=== PATIENT | male | born 1980 | race Caucasian/White ===

== ENCOUNTER → 2017-03-13 | Outpatient (RCR) | payer MEDICAID, SELFPAY | LOC: PT 10-04 13:38 | PROVIDERS: Visit Provider Orthopaedic Surgery | DX: S91.002D Unspecified open wound, left ankle, subsequent encounter (principal) | CPT/HCPCS: 97035; 97597; 97602; 97760 ==

== ENCOUNTER → 2017-07-08 14:02 | Outpatient (POV) | payer MEDICARE, SELFPAY | DX: Z00.00 Encounter for general adult medical examination without abnormal findings (principal) ==

== ENCOUNTER → 2018-10-27 12:48 | Outpatient (POV) | payer MEDICARE, SELFPAY | DX: Z00.00 Encounter for general adult medical examination without abnormal findings (principal) ==

== ENCOUNTER → 2020-11-16 10:20 | Outpatient (CLI) | payer MEDICARE, MEDICAID, SELFPAY ==
--- NOTE | 2020-11-16 10:42 | US_ITS ---
APPROVED REPORT Exam Type: Ankle to Brachial Index [employer]: RT Clint(R) Indications Claudication: Bilaterally Non-healing Ulcer: Rest Pain: Bilaterally Ulcer on left lateral mid calf with bandaging present. Risk Factors Hypertension Obesity History of Smoking Patient was 481 lbs. Pressures/Indices Right Indices Left Indices Brachial 171.00 mmHg Brachial 168.00 mmHg Calf 196.00 mmHg 1.15 Calf 215.00 mmHg 1.26 Ankle(PT) 210.00 mmHg 1.23 Ankle(PT) 212.00 mmHg 1.24 Ankle(DP) 204.00 mmHg 1.19 Ankle(DP) 188.00 mmHg 1.10 Digit 128.00 mmHg 0.75 Digit 158.00 mmHg 0.92 Conclusion RT GUILLE=1.23 LT GUILLE=1.24 RT TBI=0.75 LT TBI=0.92 Normal waveforms Normal pulses Normal ABIs Non compressible vessels seen at the left and right PT thigh levels. Electronically signed by : Minesh Chun MD 11/20/2020 16:23:52
== END ==
PROVIDERS: PCP Nurse Practitioner Family; Visit Provider Nurse Practitioner Family
DX: L97.221 Non-pressure chronic ulcer of left calf limited to breakdown of skin (principal)
CPT/HCPCS: 93923

== ENCOUNTER → 2021-01-30 10:52 | Outpatient (CLI) | payer MEDICARE, MEDICAID, SELFPAY ==
[2021-01-30 10:55] LABS: Microscopic, Urine URINE MICROSCOPIC (MICROSCOPIC)
[2021-01-30 14:57] LABS: Appearance,Urine CLEAR (Clear); Bilirubin,Urine Negative (Negative); Blood, Urine Negative (Negative); Color,Urine YELLOW (Yellow); Glucose,Urine (UA) Negative (Negative); Ketones,Urine Negative (Negative); Leukocyte Esterase,Urine Negative (Negative); Nitrate,Urine Negative (Negative); Protein,Urine Negative (Negative); Specific Gravity, Urine >= 1.030 (1.005-1.030); Urobilinogen,Urine 0.2 EU/dl (0.2)
[2021-01-30 15:43] LABS: Albumin Level 3.8 g/dl (3.5-5.0); Anion Gap 11.9 mEq/L (5-15); Blood Urea Nitrogen 10 mg/dl (9-20); Calcium 8.6 mg/dl (8.4-10.2); Carbon Dioxide 27 mmol/L (22.0-30.0); Chloride 103 mmol/L (98-107); Estimated Glomerular Filt Rate 107 ml/min (>60); GFR (African American) 129 ML/MIN (>60); Glucose 112 mg/dl (74-100); Phosphorous 3.4 mg/dl (2.5-4.5); Potassium 3.9 mmoL/L (3.5-5.1); Sodium 138 mmol/L (136-145)
[2021-01-30 15:46] LABS: Creatinine,Urine Random 117 mg/dL (Not Estab.)
[2021-01-30 18:01] LABS: Squamous Epithelial Cell,Urine Occasional #/hpf (0-5)
== END ==
PROVIDERS: Visit Provider Internal Medicine Nephrology
DX: N18.1 Chronic kidney disease, stage 1 (principal); M10.9 Gout, unspecified
CPT/HCPCS: 36415; 80069; 81001; 82570; 84155; 84550

== ENCOUNTER 2023-07-02 15:00 | Outpatient (RCR) | payer MEDICARE, MEDICAID, SELFPAY | END 2023-08-04 17:55 | disposition home or self-care (01) | LOC: PT 15:00 | PROVIDERS: Visit Provider Orthopaedic Surgery Adult Reconstructive Orthopaedic Surgery | DX: M25.512 Pain in left shoulder (principal) | CPT/HCPCS: 97110; 97163 ==

== ENCOUNTER 2024-03-03 11:00 | Outpatient (RCR) | payer MEDICARE, MEDICAID, SELFPAY | END 2024-03-03 23:59 | disposition home or self-care (01) | LOC: PT 11:00 | PROVIDERS: PCP Nurse Practitioner Family; Visit Provider Orthopaedic Surgery Sports Medicine | DX: M75.122 Complete rotator cuff tear or rupture of left shoulder, not specified as traumatic (principal) | CPT/HCPCS: 97014; 97110; 97140; 97163; 97530; G0283 ==

== ENCOUNTER 2024-04-11 07:42 | Outpatient (CLI) | payer MEDICARE, MEDICAID, SELFPAY ==
--- NOTE | 2024-04-11 07:51 | XR_ITS ---
FINAL REPORT CLINICAL HISTORY: Foot pain COMPARISON: None FINDINGS: RIGHT FOOT Three views demonstrate no acute fracture or dislocation. There are moderate hypertrophic changes over the dorsal aspect of the talonavicular joint. There is a 13 mm os trigonum. A small plantar spur is noted. No acute soft tissue abnormality is seen. IMPRESSION: Degenerative changes without acute bony abnormality. Reviewed, Interpreted and Dictated by Ralf Staples MD Transcribed by China Nolan Authenticated and [facility]
--- NOTE | 2024-04-11 07:51 | XR_ITS ---
FINAL REPORT CLINICAL HISTORY: Foot pain COMPARISON: None FINDINGS: LEFT FOOT Three views demonstrate no acute fracture or dislocation. There is a sideplate and screws securing the distal fibula. The mortise appears intact. There are hypertrophic changes at the talonavicular joint. There are some small well-corticated ossific densities inferior to the medial malleolus. No acute soft tissue abnormality is seen. IMPRESSION: Degenerative and postoperative changes without acute bony abnormality. Reviewed, Interpreted and Dictated by Ralf Staples MD Transcribed by China Nolan Authenticated and [facility]
== END 2024-04-11 23:59 | disposition home or self-care (01) ==
LOC: RAD 07:44
PROVIDERS: PCP Nurse Practitioner Family; Visit Provider Nurse Practitioner
DX: M79.671 Pain in right foot (principal); M79.672 Pain in left foot
CPT/HCPCS: 73630

== ENCOUNTER 2024-04-12 13:00 | Outpatient (RCR) | payer MEDICARE, MEDICAID, SELFPAY | END 2024-04-12 23:59 | disposition home or self-care (01) | LOC: PT 13:00 | PROVIDERS: PCP Nurse Practitioner Family; Visit Provider Orthopaedic Surgery Sports Medicine | DX: M75.122 Complete rotator cuff tear or rupture of left shoulder, not specified as traumatic (principal) | CPT/HCPCS: 97014; 97110; 97530; G0283 ==

== ENCOUNTER 2024-04-19 12:40 | Outpatient (RCR) | payer MEDICARE, MEDICAID, SELFPAY | END 2024-04-26 11:43 | disposition home or self-care (01) | LOC: PT 12:40 | PROVIDERS: PCP Nurse Practitioner Family; Visit Provider Orthopaedic Surgery Sports Medicine | DX: M75.122 Complete rotator cuff tear or rupture of left shoulder, not specified as traumatic (principal) | CPT/HCPCS: 97110; 97530 ==

== ENCOUNTER 2024-08-09 15:00 | Outpatient (RCR) | payer MEDICARE, MEDICAID, SELFPAY | END 2024-08-09 23:59 | disposition home or self-care (01) | LOC: PT 15:00 | PROVIDERS: PCP Nurse Practitioner Family; Visit Provider Orthopaedic Surgery Adult Reconstructive Orthopaedic Surgery | DX: M54.50 Low back pain, unspecified (principal); M25.552 Pain in left hip; M25.551 Pain in right hip; M25.562 Pain in left knee; M25.561 Pain in right knee | CPT/HCPCS: 20560; 97110; 97163; 97530 ==

== ENCOUNTER 2024-08-30 14:00 | Outpatient (RCR) | payer MEDICARE, MEDICAID, SELFPAY | END 2024-09-06 08:51 | disposition home or self-care (01) | LOC: PT.CARL 14:00 | PROVIDERS: PCP Nurse Practitioner Family; Visit Provider Orthopaedic Surgery Adult Reconstructive Orthopaedic Surgery | DX: M17.0 Bilateral primary osteoarthritis of knee (principal); M54.59 Other low back pain; M25.551 Pain in right hip; M25.552 Pain in left hip | CPT/HCPCS: 97110 ==

== ENCOUNTER 2025-02-06 15:50 | Outpatient (CLI) | payer MEDICARE, MEDICAID, SELFPAY ==
--- OUTSIDE RECORDS SUMMARY | 2025-02-07 08:28 | XMS_ITS | Continuity of Care Document ---
Author Organization [facility] Edictive [facility] Address [address] [place] [address] Care Team Providers Care Vibration Analyst Name Role Phone ALVERTO JONES Primary Care Provider JAGRUTI Contreras [place] JAGRUTI SPRINGER Community Health Worker [phone] Assessment Encounter Date Assessment Date Assessment LastModified by Organization Details LastModified Time 12/19/2024 12/19/2024 George Leon, a patient with peripheral vascular disease and arthritis, presented with a left 2nd toe wound from dog trauma one week ago and intermittent left-sided abdominal pain. The toe wound required daily cleaning with Hibiclens and gauze dressing. His abdominal pain was likely related to indigestion and he was cautioned to only use Celebrex rarely. He was started on Prilosec for 30 days and advised to take Celebrex with food only when truly needed rather than daily. [email or web address] Not available 12/19/2024 16:33:06 Plan of Treatment Reminders Order Date Submit Date Provider Last Modified By Organization Details Last Modified Time Details Appointments FOLLOW UP 30 2024 01:30P M Gege Jones APRN Not available Not available Not available Lab None recorded. Referral None recorded. Procedures None recorded. Surgeries None recorded. Imaging None recorded. Medication Orders omeprazol e 20 mg capsule,d elayed release 2024 025 [facility], [address] [place] [address], [id number], 12/19/2024 16:00:00 Patient TargetsNo targets recorded. Patient InstructionsNo instructions recorded. Reason for Referral None Reported. Problems Name Problem SNOMED Code Status Onset Date Resolution Date Notes Provider Name and Address Organization Details Recorded Time Peripher al vascular disease 282148078 Active 2020 Not Available [facility] 22:21:15 Hyperten sive disorder 29483443 Active 2021 Problem Code: I10; Problem Code Type: ICD-10; Not Available [facility] 2 22:21:15 Moderate recurren t major depressi on 46947419 Active 2021 Problem Code: F33.1; Problem Code Type: ICD-10; Not Available [facility] 22:21:15 Body mass index 40+ - severely obese 040778633 Active 2021 Not Available [facility] 22:21:16 Mixed hyperlip idemia 676979815 Active 2021 Problem Code: E78.2; Problem Code Type: ICD-10; Not Available [facility] 22:21:15 Gout 51231114 Completed 202209/24/2023 Removal Reason: duplicat e Taylor James NP [address] [place] [address], [phone] , [employer] 4 14:35:31 Generali zed osteoart hritis 036378489 Active 2022 Taylor James NP [address] [place] [address], [phone] , [employer] 4 14:35:22 Chronic gouty arthriti s 01918017 Active 2023 Taylor James NP [address] [place] [address], [phone] , [employer] 4 14:35:20 Vitamin D deficien 30446775 Active 2023 Alverto Jones APRN [address] [place] [address], [phone] , [employer] 4 13:15:26 Deep venous thrombos is of lower extremit y 814006869 Active 2024 Alverto Jones APRN [address] [place] [address], [phone] , [employer] 5 14:21:37 Osteoart hritis of left knee joint 48314526738 9109 Active 2024 Alverto Jones APRN [address] [place] [address], [address] [place] [address] , [employer] 5 09:21:02 Indigest ion 148443863 Active 2024 Alverto Jones APRN [address] [place] [address], [address] [place] [address] , [employer] 5 15:45:31 Open wound of lesser toe of left foot 21794748932 251375 Active 2024 Alverto Jones APRN [address] [place] [address], [address] [place] [address] , [employer] 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 Procedures Surgical History Date Name Laterality Status Provider Name and Address Organization Details Recorded Time 12/14/19 24 complete repair of rotator cuff completed Alverto Jones APRN [address] [place] [address], [phone], [employer] 01/13/2024 15:42:32 10/25/19 21 repair of ankle completed Not Available [facility] 08/2021 22:56:18 10/25/19 21 tonsillectomy and adenoidectomy completed Not Available [facility] 11/19/2021 22:56:19 Imaging Results None recorded. Procedure Notes None recorded. Medical Equipment None Reported. Allergies Allergen ID Allergen Name Allergen Category Reaction Reaction Severity Criticality Documentation Date Start Date Code Code System Note Provider Name and Address Organization Details Recorded Time 67669 Bactrim medicatio n Not available Not available Not available 11/19/2021 50426 9 RxNorm Not Available [facility] 22:56:32 16387 sulfameth oxazole / trimethop rim medicatio n Not available Not available [facility] 02/06/20252022 95242 RxNorm unrec ogniz ed react ion (text : GI Intol eranc e, code: 85727 4005) (from exter nal sourc e) unrec ogniz ed react ion (text : Irrit abili ty, code: 90856 6000) (from exter nal sourc e) Not Available [employer] - External Data Service - prod 16:31:44 Medications Name Sig Start Date Stop Date Status Note LastModified by Organization Details LastModified Time losartan 50 mg tablet TAKE ONE TABLET BY MOUTH EVERY DAY active Not Available Not Available No t Available celecoxib 200 mg capsule TAKE ONE CAPSULE BY MOUTH EVERY DAY NEEDED FOR ARTHRITIS 2024 active Not Available Not Available Not Avai lable furosemide 40 mg tablet TAKE ONE TABLET BY MOUTH EVERY MORNING active Not Available Not Available No t Available carvedilol 25 mg tablet TAKE ONE TABLET BY MOUTH TWICE DAILY WITH FOOD active Not Available Not Available No t Available ketoconazol e 2 % shampoo Massage into scalp and carrillo 2-3 times a week. Let sit a few minutes before rinsing. Follow with regular shampoo. active Not Available Not Available No t Available ammonium lactate 12 % lotion 08/13 completed Not Available Not Available Not Available azithromyci n 250 mg tablet TAKE 2 TABLETS BY MOUTH ON DAY 1, THEN TAKE 1 TABLET DAILY ON DAYS 2-5 10/25 completed Not Available Not Available Not Available tizanidine 4 mg tablet TAKE 1 TABLET EVERY 6 HOURS NEEDED. DO NOT TAKE MORE THAN 3 TABLETS IN 24 HOURS. 02/11 completed Not Available Not Available Not Available cephalexin 250 mg capsule take 1 capsule (250 mg) by oral route every 6 hours for 7 days 12/12 completed Not Available Not Available Not Available fluticasone propionate 0.05 % topical cream Apply to affected areas on face twice daily for up to 2 weeks. Stop for 1 week. Repeat as needed. active Not Available Not Available No t Available sertraline 100 mg tablet TAKE 1 TABLET BY MOUTH EVERY DAY active Not Available Not Available No t Available allopurinol 100 mg tablet TAKE TWO TABLETS BY MOUTH TWICE DAILY EVERY DAY active Not Available Not Available No t Available aspirin 81 mg tablet,ada yed release take 1 tablet (81 mg) by oral route once daily 05/25 completed Not Available Not Available Not Available doxycycline monohydrate 100 mg capsule TAKE ONE CAPSULE BY MOUTH TWICE DAILY with a MEAL FOR SEVEN DAYS, FOR ear infection 08/23 completed Not Available Not Available Not Available ropinirole 2 mg tablet TAKE ONE TABLET BY MOUTH TWICE DAILY 2024 active Not Available Not Available Not Avai lable omeprazole 20 mg capsule,del ayed release TAKE 1 CAPSULE BY MOUTH EVERY DAY FOR 30 DAYS FOR stomach 2024 active Not Available Not Available Not Avai lable diclofenac sodium 75 mg tablet,ada yed release TAKE ONE TABLET BY MOUTH TWICE DAILY 05/25 completed Not Available Not Available Not Available montelukast 10 mg tablet TAKE ONE TABLET BY MOUTH EVERY EVENING 02/16 completed Not Available Not Available Not Available mupirocin 2 % topical ointment APPLY TO SURGICAL SITE 3 TIMES EACH DAY. KEEP COVERED WITH BANDAGE. 02/11 completed Not Available Not Available Not Available levofloxaci n 750 mg tablet TAKE 1 TABLET 1 TIME EACH DAY 02/11 completed Not Available Not Available Not Available albuterol sulfate HFA 90 mcg/actuati on aerosol inhaler Inhale 2 puffs every 4 hours by inhalatio n route. active Not Available Not Available No t Available Vitamin D2 1,250 mcg (50,000 unit) capsule TAKE ONE CAPSULE BY MOUTH EVERY WEEK FOR VITAMIN D active Not Available Not Available No t Available ketoconazol e 2 % topical cream Apply a thin layer to the affected area twice a day as needed. active Not Available Not Available No t Available fluticasone propionate 50 mcg/actuati on nasal spray,suspe nsion Administe r 1 spray into each nostril in the morning and 1 spray before bedtime. active Not Available Not Available No t Available sertraline 50 mg tablet take 1 tablet (50 mg) by oral route once daily 02/11 completed Not Available Not Available Not Available chlorhexidi ne gluconate 4 % topical liquid Apply 1 applicati on twice a week by topical route. 08/13 completed Not Available Not Available Not Available amoxicillin 875 mg-potassiu m clavulanate 125 mg tablet 08/17 completed Not Available Not Available Not Available oxycodone 5 mg tablet TAKE ONE TABLET BY MOUTH EVERY 6 HOURS NEEDED FOR PAIN 01/12 completed Not Available Not Available Not Available rosuvastati n 20 mg tablet TAKE ONE TABLET BY MOUTH EVERY DAY FOR CHOLESTER OL 2024 active Not Available Not Available Not Avai lable duloxetine 30 mg capsule,del ayed release TAKE ONE CAPSULE BY MOUTH EVERY DAY for chronic pain 06/27 completed Not Available Not Available Not Available duloxetine 60 mg capsule,del ayed release TAKE ONE CAPSULE BY MOUTH EVERY DAY FOR PAIN active Not Available Not Available No t Available diclofenac 1 % topical gel APPLY 4 GRAMS TO THE SKIN OVER THE PAINFUL AREA UP TO 4 TIMES EACH DAY. 2024 active Not Available Not Available Not Avai lable Eliquis 5 mg tablet TAKE ONE TABLET BY MOUTH TWICE DAILY for blood clot active Not Available Not Available No t Available Robitussin Cough-Chest Congestion DM 5 mg-100 mg/5 mL oral liquid Take 5 mL every 4-6 hours by oral route as needed, for cough. 08/23 completed Not Available Not Available Not Available Marla-Tussin DM 10 mg-100 mg/5 mL oral liquid Take 5 mL by mouth every 4-6 hours as needed, for cough. 08/23 completed Not Available Not Available Not Available Vitals Date Recorded Body height Body mass index (BMI) Body weight Body temperature Heart rate Oxygen saturation Systolic And Diastolic Provider Name and Address Organization Details Last Updated DateTime 180.34 cm 64.5 kg/m2 973941. 11 g 98.1 [degF] 82 /min 96 % 126/80 mm[Hg] MICHAEL GUAJARDO [employer] 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 02/11/2022 11:56:43 Do You Have An Advance Directive? No Information n ot available 02/11/2022 Is Your Home Air Conditioned? Yes Information not available 02/11/2022 Are You Blind Or Do You Have Difficulty Seeing? No Information n ot available 10/10/2022 In The 14 Days Before Symptom Onset, Have You Had Close Contact With A Laboratory-confirm ed COVID-19 While That Case Was Ill? No Information n ot available 02/11/2022 In The 14 Days Before Symptom Onset, Have You Had Close Contact With A Person Who Is Under Investigation For COVID-19 While That Person Was Ill? No Information not available 09/24/2023 Have You Been To An Area Known To Be High Risk For COVID-19? No Information not available 02/11/2022 Are You Deaf Or Do You Have Serious Difficulty Hearing? No Information not available 10/10/2022 What Type Of Diet Are You Following? REGULAR Information n ot available 02/11/2022 Have There Been Any Changes To Your Family Or Social Situation? No Information no t available 02/11/2022 Are There Any Guns Present In Your Home? No Information not available 02/11/2022 Do You Have A Medical Power Of Pitting Machine Operator? No Information not available 02/11/2022 What Was The Date Of Your Most Recent Tobacco Screening? 12/19/2024 Information not available 12/19/2024 What Is Your Relationship Status? Single Information not available 02/11/2022 Do You Use Your Seat Belt Or Car Seat Routinely? Yes Information not available 02/11/2022 Do You Have Smoke And Carbon Monoxide Detectors In Your Home? Yes Information not available 02/11/2022 Are You Passively Exposed To Smoke? No Information no t available 02/11/2022 Are There Any Smokers In Your House? No Information not available 02/11/2022 Do You Use Sunscreen Routinely? No Information not available 02/11/2022 Has Tobacco Cessation Counseling Been Provided? No Information not available 02/11/2022 Have You Recently Traveled Abroad? No Information not available 02/11/2022 Do You Have Difficulty Walking Or Climbing Stairs? No Information not available 10/10/2022 Are You Currently In School? No Information not available 02/11/2022 Do You Have Any Dietary Restrictions? No Information not available 02/11/2022 Sex: Male Functional Status Question Answer Note LastModified by Organizat ion Details LastModified Time Do you use any illicit or recreational drugs? No Information not available 02/11/2022 Do you or have you ever used any other forms of tobacco or nicotine? Yes Information not available 08/18/2023 What is your level of alcohol consumption? None Information not available 02/11/2022 Do you or have you ever used smokeless tobacco? Current snuff user Information not available 10/10/2022 Are you currently employed? Yes Information not available 02/11/2022 Do you have transportation difficulties? Yes Information not available 02/11/2022 Are you able to walk independently without assistance or assistive devices? YESASSIST Information not available 10/10/2022 Do you have difficulty doing errands alone? No Information not available 10/10/2022 Are you able to care for yourself independently? Yes Information not available 02/11/2022 Do you have difficulty dressing, bathing, grooming, or toileting? No Information not available 10/10/2022 Do you or have you ever used e-cigarettes or vape? Never used electronic cigarettes Information not available 08/18/2023 Mental Status Question Answer Note LastModified by Organization D etails LastModified Time Do you have difficulty concentrating, remembering or making decisions? No Information no t available 10/10/2022 Family History Relationship Description Onset Age of this Age Resolved Age Notes LastModified by Organization Details LastModified Time Unspecified Relation Family history of Hypertension Relati ve: ''; [email or web address] Not available 11/19/2021 23:02:02 Unspecified Relation Family history of Cardiovascul ar disease Relati ve: ''; [email or web address] Not available 11/19/2021 23:02:03 Unspecified Relation Family history of Hypothyroidi sm Relati ve: ''; [email or web address] Not available 11/19/2021 23:02:04 Unspecified Relation Family history of Depression Relati ve: ''; [email or web address] Not available 11/19/2021 23:02:04 Unspecified Relation Family history of drug abuse Relati ve: ''; [email or web address] Not available 11/19/2021 23:02:04 Notes:*Procedure Description : Documented family medical history in mother*Relative: Mother *Procedure Description: Documented family medical history in father*Relative: Father *Procedure Description: Documented family medical history in sister*Relative: Sister *Procedure Description: Family history of bipolar disorder*Relative: Unspecified Relation *Problem: Relative: ''; Medical History Condition Response Allergies (Food, seasonal, environmental ) Y Coronary Artery Disease N Other N Gout N Kidney Stones N Blood Diseases N Hyperthyroidism N Breast Cancer N Blood Transfusion N Emergency room visit since last appointm ent. N Hypothyroidism N Lung Disease N COPD N Dermatologic Disorders N Depression N Defects or Inherited Disease N Developmental or Behavioral Disorders N Breast Problem N Difficulty Swallowing N Anesthesia Complications N History of STI N Meniere's disease N Anxiety Disorder N Muscle, Joint, or Bone Problems N Autoimmune disease N Obesity Y Vision or Eye Problems N Arthritis N Polyps N Infertility N Mental Disorder N Congenital Anomalies N Acid Reflux (GERD) N Cancer N Stroke N Neurologic/Epilepsy N Endometriosis N Bladder or Kidney Problems N High Cholesterol N Liver Disease N Psychiatric/Mental Health Condition N Organ Transplant N Headaches N Schizophrenia N Fibromyalgia N Dialysis N Kidney Disease N Allergies/Hayfever N Heart Problems N Ear or Hearing Problems N Hospitalizations N Learning Disorder N Artificial Joints N Thyroid Problems N GI Problems N Acne N ADD/ADHD N Eating Disorder N Anemia N Constipation N Mental Illness N Ovarian Cancer N Diabetes N Bedwetting N Hepatitis/Liver Disease N Tuberculosis N Eczema N Diverticulitis N Abuse/Domestic Violence N Asthma N Trauma/Violence N Substance Abuse N Reflux/GERD N Depression/ depression N Hepatitis N Heart Disease N Pulmonary Embolism N Tourette Syndrome N Pre-Eclampsia N Hypertension N Chronic Ear Infections N Osteoporosis N Chicken Pox N Autism Spectrum Disorder (ASD) N Thrombophilias N Immunizations Vaccine Type Date Status Note Provider Nam e and Address Organization Details Recorded Time Influenza, split virus, quadrivalent, PF 3 completed Alverto Jones, FLOOR ASSOCIATE [address] [place], [address], [employer] 02/16/2023 13:00:52 COVID-19 vaccine, vector-nr, rS-Ad26, PF, 0.5 mL 1 completed MICHAEL MYNEAR null, [employer] 02/11/2022 11:54:50 Influenza, split virus, quadrivalent, PF 1 completed MICHAEL MYNEAR null, [employer] 02/11/2022 11:54:50 COVID-19, mRNA, LNP-S, PF, silver-sucrose, 30 mcg/0.3 mL 4 completed Alverto Jones, FLOOR ASSOCIATE [address] [place], [address], [employer] 02/24/2024 12:08:41 Influenza, MDCK, quadrivalent, PF 0 completed MICHAEL MYNEAR null, [employer] 02/11/2022 11:54:50 Influenza, MDCK, quadrivalent, PF 8 completed MICHAEL MYNEAR null, [employer] 02/11/2022 11:54:50 Td (adult), 2 Lf tetanus toxoid, preservative free, adsorbed 6 completed MICHAEL MYNEAR null, [employer] 02/11/2022 11:54:50 COVID-19 vaccine, vector-nr, rS-Ad26, PF, 0.5 mL 1 completed MICHAEL MYNEAR null, [employer] 02/11/2022 11:54:50 Tdap 3 completed MICHAELNAIF GUAAJRDO null, [place] [employer] 02/11/2022 11:54:50 Influenza, MDCK, quadrivalent, PF 8 completed Pati Horowitz null, [employer] 10/10/2022 17:07:18 Influenza, split virus, trivalent, PF 5 completed MICHAEL MACARENANEAR null, [employer] 12/19/2024 15:25:02 Past Encounters Encounter ID Performer Location Encounter Start Date Encounter Closed Date Diagnosis/Indication Diagnosis SNOMED-CT Code Diagnosis ICD10 Code Diagnosis IMO Codes Diagnosis Note [id number] Alverto Jones FLOOR ASSOCIATE [address] [address] 12/19/2024 14:58:24 12/19/2024 16:48:43 Influenza vaccination given 7710158603 9109 Z23 24307155 Indigestion 363723407 K3 0 96931 Open wound of lesser toe of left foot 4225620973 3197937 S91.105A [id number] Goals Section Goal Description Progress Status Start Date LastModified by Organization Details LastModified Time Housing [facility] will assist patient with finding handicapped housing within [place] or [place] within in the next 6 months so patient can move out of parents house. [facility] will obtain applications for apartments and forward to patient via emila per patient request, since patient does not have tranportation. patient would also like assistance with the actual move, if [facility] is able to find that assistance. Pt is not at risk for losing housing and therefore patient reports this is not an urgent need. sustaining active 2024 Jagruti Springer Information not available 09/08/2024 19:02:48 Health Concerns Section Related Observation LastModified by Organization Detai ls LastModified Time Disability Not Available Not Available Not Available Concern Status LastModified by Organization Details LastModified Time Encounter for screening involving social determinants of health (SDoH) Active Jagruti Springer Not Available 09/08/2024 19:0 6:31 Encounter for education Active Jagruti Springer Not Available 09/08/2024 19:02 :48 Payers Encounter Date Sequence Insurance Name Policy Number Policy Longo Covered Member ID Longo Member ID Guarantor Name 12/19/2024 2 MEDICAID-[facility] CHOICES - FFS/TRADITIO NAL George Leon [id number] George Leon 12/19/2024 1 [employer] (MEDICARE REPLACEMENT/ ADVANTAGE - PPO) [id number] George Leon [id number] George Leon Notes Date Note Type Note Provider Name and Address Organization Details Recorded Time 12/19/2024 text/html ROS as noted in the HPI Chief ComplaintLeft 2nd toe injury and wound from dog jumping on it 1 week ago, intermittent left-sided stomach pain for a few daysHistory of Present IllnessJosejhony Leon, a patient with a history of peripheral vascular disease and arthritis, presents with two main concerns: a wound on his left 2nd toe and intermittent left-sided abdominal pain.Mr. Leon reports that about a week ago, his dog jumped on his left 2nd toe, causing pain. He initially tried to manage it himself but was unable to properly care for it due to difficulty reaching his feet. The patient only discovered a wound on the toe today when removing his sock. He has not been dressing or cleaning the wound, as he relies on his sister's weekly visits for foot care.Regarding the abdominal pain, Mr. Leon describes intermittent left-sided stomach pain that comes and goes, sometimes becoming quite severe. He experienced this pain for a few days, then it subsided, but still occurs occasionally. On the day he first noticed it, he vomited acid but has not had any blood in his vomit. The patient is unsure if the pain is related to his diet or movement. He typically eats one to two meals per day, depending on his hunger level, and reports that his bowel movements are normal for him.Mr. Leon mentions that he has been trying to lose weight and has successfully done so by reducing his meals to once daily and increasing his protein intake, particularly with cottage cheese. He has also been walking more.The patient reports taking Celebrex daily for arthritis pain, stating that he needs it to keep moving and functioning. He emphasizes that without it, he would be in too much pain to do anything. Alverto Jones APRN [address] [facility], [place], [address], [place] - [employer] 12/19/2024 16:33:27
--- OUTSIDE RECORDS SUMMARY | 2025-02-07 08:28 | XMS_ITS | Clinical Summary ---
Author Organization [facility] Address [address] [place] [address] Care Team Providers Care Lobby Concierge Name Role Phone Madelaine Jones APRN Primary Care Provider [phone] Allergies Active Allergy Reactions Criticality Noted Date Comments Sulfamethoxazole-Trimethop rim GI Intolerance,Irritability Medium 09/01/2022 Medications sertraline (ZOLOFT) 100 MG tablet Take 1 tablet by mouth Daily. Active ketoconazole (NIZORAL) 2 % shampoo ketoconazole 2 % shampoo Active rosuvastatin (CRESTOR) 20 MG tablet Take 1 tablet by mouth Daily. Active fluticasone (FLONASE) 50 MCG/ACT nasal spray Administer 1 spray into the nostril(s) as directed by provider Daily. Active allopurinol (ZYLOPRIM) 100 MG tablet Take 1 tablet by mouth 2 (Two) Times a Day. Active rOPINIRole (REQUIP) 2 MG tablet Take 1 tablet by mouth Every Night. 3 Active albuterol sulfate HFA 108 (90 Base) MCG/ACT inhaler Inhale 2 puffs Every 4 (Four) Hours As Needed for Wheezing or Shortness of Air. 4 Active vitamin D (ERGOCALCIFEROL ) 1.25 MG (91995 UT) capsule capsule Take 1 capsule by mouth Every 7 (Seven) Days. Thursday 4 Active ascorbic acid (VITAMIN C) 1000 MG tablet Take 1 tablet by mouth Daily. Active carvedilol (COREG) 12.5 MG tablet Take 1 tablet by mouth 2 (Two) Times a Day With Meals. 4 Active acetaminophen (TYLENOL) 500 MG tablet Take 2 tablets by mouth Every 6 (Six) Hours As Needed for Mild Pain. 4 Active celecoxib (CeleBREX) 200 MG capsule Take 1 capsule by mouth Daily. 5 Active Active Problems Problem Noted Date Diagnosed Date Complete rotator cuff tear of left shoulder 11/16 S/P left rotator cuff repair , arthroscopic with biceps tenodesis, and extensive debridement of labrum. 12/14/2023 Overview (12/14/2023): 1. Left arthroscopic rotator cuff repair. 2. Left arthroscopic biceps tenodesis 3. Left arthroscopic extensive debridement with debridement of labrum anteriorly, posterior labrum, biceps anchor, and bursa Morbid obesity 12/14/2023 HTN (hypertension) 09/01/2022 Assessment & Plan (03/29/2024 11:02 AM EST): Hypertension is well controlled. Continue current treatment regimen. Dietary sodium restriction. Weight loss. Regular aerobic exercise. Blood pressure will be reassessed at the next regular appointment. Assessment & Plan (03/03/2023 1:52 PM EST): Hypertension is well controlled. Continue current treatment regimen. Dietary sodium restriction. Weight loss. Regular aerobic exercise. Blood pressure will be reassessed at the next regular appointment. Assessment & Plan (09/01/2022 9:16 AM EDT): Hypertension is well controlled. Continue current treatment regimen. Dietary sodium restriction. Weight loss. Regular aerobic exercise. Blood pressure will be reassessed at the next regular appointment. Cardiomegaly 09/01/2022 Assessment & Plan (03/29/2024 11:01 AM EST): Stable. Echocardiogram on 08/27/23 showed an LVEF of 56-60%. Mild concentric LVH, normal diastolic function and no significant valvular regurgitation or stenosis. Assessment & Plan (08/27/2023 1:22 PM EDT): Stable. Echocardiogram today showed an LVEF of 56-60%. Mild concentric LVH, normal diastolic function and no significant valvular regurgitation or stenosis. Assessment & Plan (03/03/2023 1:52 PM EST): Stable. Echocardiogram from 07/25/2021 revealed LVEF 60-65%. Mild left ventricular dilation. Mild concentric left ventricular hypertrophy. Mildly elevated RVSP, 36 mmHg. -Update echo at follow up visit in 6 months. Assessment & Plan (09/01/2022 9:17 AM EDT): Stable. Echocardiogram from 07/25/2021 revealed LVEF 60-65%. Mild left ventricular dilation. Mild concentric left ventricular hypertrophy. Mildly elevated RVSP, 36 mmHg. - Consider repeat echo at next office visit. LUCY (obstructive sleep apnea) 09/01/2022 Assessment & Plan (09/29/2024 3:24 PM EDT): Known history of severe sleep apnea. Baseline AHI is 34. He is on CPAP therapy. Download reviewed with good control and good compliance. He is benefiting from PAP therapy. We plan to continue PAP therapy Prescription to DME for PAP supplies including a minimalist style fullface mask such as an AirFit F30 I with the tubing from the top. Plan follow-up in 6 months for his coexisting hypertension and LVH with severe sleep apnea. Assessment & Plan (03/29/2024 11:05 AM EST): He is doing well on PAP therapy with good control and compliance. Download reviewed and interpreted today. Compliance is 100%, AHI is 1.1. He has recently noticed a whistling noise from his CPAP. -Contact DME company to check device -Continue PAP therapy at current settings -Do not drive if sleepy -Follow up in 6 months Assessment & Plan (08/27/2023 1:27 PM EDT): He is doing well on PAP therapy with good control and compliance. Download reviewed and interpreted today. Compliance is 100%, average use per night is 5 hours and 55 minutes. AHI is 1.5. He sometimes feels like needs more pressure, he would like to increase settings.. -Change pressure settings to 14-20cm Assessment & Plan (03/03/2023 2:02 PM EST): Patient is doing very well on PAP therapy with good control and compliance. Download reviewed and interpreted today. Compliance is 100%, AHI is 1.3 - Continue PAP therapy at current settings. Assessment & Plan (09/01/2022 9:15 AM EDT): Doing well on PAP therapy with good control compliance. Download reviewed and interpreted today. Compliance is 97%, AHI is 1.2. Continue PAP therapy at current settings. Family History Medical History Relation Name Comments No Known Problems Father Hypertension Mother No Known Problems Sister Relation Name Status Comments Father Alive Mother Alive Sister Alive Social History Tobacco Use Types Packs/Day Years Used Date Smoking Tobacco: Former Cigarettes 1 13 S tarted: 2000 Passive Smoke Exposure: Past Smokeless Tobacco: Current Chew Tobacco Cessation:Ready to Q uit: Not Asked; Counseling Given: Not Answered Alcohol Use Standard Drinks/Week Comments Not Currently 0 (1 standard drink = 0.6 oz pur e alcohol) [email or web address] Answer Date Recorded In the past 12 months has e [email or web address], oil, or water [employer] threatened to shut off services in your home? No 12/15/2023 AUDIT-C Answer Date Recorded Q1: How often do you have a drink containing alcohol? Never 12/14/2023 Q2: How many drinks containi ng alcohol do you have on a typical day when you are drinking? Patient does not drink Q3: How often do you have si x or more drinks on one occasion? Never 12/14/2023 Exercise Vital Sign Answer Date Recorde d On average, how many days pe r week do you engage in moderate to strenuous exercise (like a brisk walk)? 0 days 12/15/2023 On average, how many minutes do you engage in exercise at this level? 0 min 12/15/2023 Hunger Vital Sign Answer Date Recorded Within the past 12 months, y ou worried that your food would run out before you got the money to buy more. Never true 12/15/19 24 Within the past 12 months, t he food you bought just didn't last and you didn't have money to get more. Never true 12/15/2023 PRAPARE - Transportation Answer Date Re corded In the past 12 months, has l ack of transportation kept you from medical appointments or from getting medications? No 03/2023 In the past 12 months, has l ack of transportation kept you from meetings, work, or from getting things needed for daily living? No 12/15/2023 Abuse Screen Answer Date Recorded Feels Unsafe at Home or Work/School no 12/14/2023 Feels Threatened by Someone no 11/16 Does Anyone Try to Keep You From Having Contact with Others or Doing Things Outside Your Home? no 12/14/2023 Physical Signs of Abuse Present no 12/14/2023 Housing Stability Answer Date Recorded Current Living Arrangements home 03/2023 Potentially Unsafe Housing Conditions none 12/15/2023 Disabilities Answer Date Recorded Difficulty Concentrating, Remembering or Making Decisions no 12/14/2023 Difficulty Managing Errands Independently yes 12/14/2023 Education Answer Date Recorded Help with school or training? Not on file Preferred Language Kyrgyz 12/15/2023 Sex and Gender Information Value Date Recorded Sex Assigned at Male 08/31/2022 11:05 AM EDT Legal Sex Male 8:04 AM EST Gender Identity Male 08/31/2022 11:05 AM EDT Sexual Orientation Straight 08/31/2022 11 :05 AM EDT Last Filed Vital Signs Vital Sign Reading Time Taken Comments Blood Pressure 138/84 09/29/2024 12:46 PM EDT Pulse 71 09/29/2024 12:46 PM EDT Temperature 36.7 C (98.1 F) 12/19/2023 11:00 AM EDT Respiratory Rate 18 12/19/2023 11:00 AM EDT Oxygen Saturation 98% 09/29/2024 12:46 PM EDT Inhaled Oxygen Concentration - - Weight 215 kg (473 lb 8 oz) 09/29/2024 12:46 PM EDT Height 190.5 cm (6' 3 ) 09/29/2024 12:46 PM EDT Body Mass Index 59.18 09/29/2024 12:46 PM EDT Plan of Treatment Upcoming Encounters Date Type Department Care Team (Late st Contact Info) Description 03/30/2025 1:30 PM EST Office Visit [facility] [address] [phone] Anitra Montaño, RETANNED LEATHER ROLLER [address] [place] [address] [place] [address] Health Maintenance Due Date Last Done Comments ANNUAL WELLNESS VISIT 09/01/2022 HEPATITIS C SCREENING 09/01/2022 TDAP/TD VACCINES (3 - Td or Tdap) 11/24/2022 11/24/2012, 06/22/1995 INFLUENZA VACCINE 10/14/2024 02/16/2023, , 01/17/2020, Additional history exists COLOGUARD 12/28/2024 COLON CANCER SCREENING 5 YEAR SIGMOIDOSCOPY 12/28/2024 COLONOSCOPY 12/28/2024 COLORECTAL CANCER SCREENING 12/28/2024 CT COLONOGRAPHY 12/28/2024 FECAL OCCULT BLOOD TEST 12/28/2024 FIT Testing (1 year) 12/28/2024 Pneumococcal Vaccine 0-49 Aged Out No longer eligible based on patient's age to complete this topic Medical Devices Implanted Type Area Manager Servicing Device Identifier Shelf Expiration Date Model / Serial / Lot Sut/Anch Healix Adv Br W/Dynacord 4.5mm - [id number] Implanted:Qty: 1 on 12/14/2023 by Braden Grady MD at [facility] Implant Left: Shoulder DEPUY MITEK [id number] / / [id number] Dev Bicep Fibrtak Knotlss Tensionable - [id number] Implanted:Qty: 1 on 12/14/2023 by Braden Grady MD at [facility] Implant Left: Shoulder ARTHREX 09/12/2028 [id number] / / [id number] Sut/Anch Healix Advance Biocomp Sp 4.9mm - [id number] Implanted:Qty: 1 on 12/14/2023 by Braden Grady MD at [facility] Implant Left: Shoulder DEPUY MITEK 06/13/2025 [id number] / / [id number] Sut/Anch Healix Advance Biocomp Sp 4.9mm - [id number] Implanted:Qty: 1 on 12/14/2023 by Braden Grady MD at [facility] Implant Left: Shoulder DEPUY MITEK 05/13/2025 [id number] / / [id number] Sut/Anch Healix Adv Br W/Dynacord 4.5mm - [id number] Implanted:Qty: 1 on 12/14/2023 by Braden Grady MD at [facility] Implant Left: Shoulder DEPUY MITEK 03/15/2026 [id number] / / [id number] Insurance [id number] MEDICARE ADVANTAGE [facility] Care Teams Lobby Concierge Relationship Specialty Start Date End Date Madelaine Jones APRN [id number] [place] [address] PCP - General Nurse Practitioner 09/01/22
--- OUTSIDE RECORDS SUMMARY | 2025-02-07 08:29 | XMS_ITS | Data Portability ---
Author Organization [facility] Address [address] [place] [address] Care Team Providers Care Material Control Associate Name Role Phone ALVERTO JONES Primary Care Provider JAGRUTI [facility] Educator JAGRUTI SPRINGER Community Health Worker Assessment Encounter Date Assessment Date Assessment LastModified [...] Not available Not available Not available Lab TSH, ultra-sen sitive, serum 2024 025 DONIPHAN [facility] ([facility], [address] [place] [address], [place], [address], 08/24/2024 09:08:35 urinalysi s complete, reflex culture 2024 025 EDD [facility] ([facility]), [address] [place], [address], 08/24/2024 09:08:32 PSA, total, serum or plasma 2024 025 [facility] ([facility]), [address] [place], [address], 08/24/2024 09:08:34 HbA1c (hemoglob in A1c), blood 2024 025 [facility] ([facility]), [address] [place], [address], 08/24/2024 09:08:34 lipid panel, serum 2024 025 [facility] ([facility]), [address] [place], [address], 08/24/2024 09:08:33 CMP, serum or plasma 2024 025 [facility] ([facility]), [address] [place], [address], 08/24/2024 09:08:32 CBC w/ auto diff 2024 025 [facility] ([facility]), [address] [place], [address], 08/24/2024 09:08:31 vitamin D, 25-hydrox y, total, serum 2024 025 [facility] ([facility]), [address] [place], [address], 08/24/2024 09:08:35 uric acid, serum or plasma 2024 025 [facility] ([facility]), [address] [place], [address], 08/24/2024 09:08:36 CMP, serum or plasma [address] [facility]), [address] [place], [address], 02/18/2024 08:12:44 CBC w/ auto diff 2023 024 [facility] ([facility]), [address] [place], [address], 02/18/2024 08:12:43 HbA1c (hemoglob in A1c), blood [address] [facility]), [address] [place], [address], 02/18/2024 08:12:44 TSH + free T4, serum 2023 024 [facility] ([facility]), [address] [place], [address], 02/18/2024 08:12:42 vitamin D, 25-hydrox y, total, serum [address] [facility]), [address] [place], [address], 02/18/2024 08:12:45 Referral orthopedi c surgeon referral - first available appt 2024 025 DONIPHAN [facility], [address] [address], [place], [address], 12/06/2024 16:26:18 podiatris t referral - March please 2023 024 [facility], [address], [place], [address], 04/17/2024 11:03:38 Procedures None recorded. Surgeries None recorded. Imaging XR, knee, 3 view [address], [place], [address], 08/23/2024 12:34:14 US, duplex, venous, lower extremity - 3 month f/up on DVT 2024 025 [facility], [address], [place], [address], 08/25/2024 13:11:45 Medication Orders omeprazol e 20 mg capsule,d elayed release [address] [facility], [address] [place] [address], [address], 12/19/2024 16:00:00 allopurin ol 100 mg tablet [address] [facility], [address] [place] [address], [address], 01/31/2025 16:05:05 diclofena c 1 % topical gel [address] [facility], [address] [place] [address], [address], 08/23/2024 10:51:02 ropinirol e 2 mg tablet [address] [facility], [address] [place] [address], [address], 12/26/2024 16:22:07 Cymbalta 60 mg capsule,d elayed release [address] [facility], [address] [place] [address], [address], 09/19/2024 16:46:13 sertralin e 100 mg tablet [address] [facility], [address] [place] [address], [address], 01/31/2025 16:05:05 carvedilo l 25 mg tablet [address] [facility], [address] [place] [address], [address], 01/31/2025 16:05:06 furosemid e 40 mg tablet 2024 025 [facility], [address] [place] [address], [address], 01/31/2025 16:05:06 losartan 50 mg tablet 2024 025 [facility], [address] [place] [address], [address], 01/31/2025 16:05:07 rosuvasta tin 20 mg tablet 2024 025 [facility], [address] [place] [address], [address], 12/26/2024 16:22:05 Vitamin D2 1,250 mcg (50,000 unit) capsule 2024 025 [facility], [address] [place] [address], [address], 08/23/2024 10:40:56 doxycycli ne monohydra te 100 mg capsule 2024 025 [facility], [address] [place] [address], [id number], 08/23/2024 09:30:31 Robitussi n Cough-Yoselin st Congestio n DM 5 mg-100 mg/5 mL oral liquid 2024 025 [facility], [address] [place] [address], [address], 08/23/2024 09:30:27 albuterol sulfate HFA 90 mcg/actua tion aerosol inhaler 2024 025 [facility], [address] [place] [address], [address], 10/24/2024 14:12:25 Cymbalta 30 mg capsule,d elayed release 2024 025 [facility], [address] [place] [address], [address], 06/27/2024 14:59:17 Eliquis 5 mg tablet [address] [facility] [place], [address] [place] [address], [address], 05/25/2024 14:41:13 losartan 50 mg tablet [address] [facility], [address] [place] [address], [address], 05/25/2024 15:06:18 allopurin ol 100 mg tablet [address] [facility], [address] [place] [address], [address], 06/13/2024 16:37:17 albuterol sulfate HFA 90 mcg/actua tion aerosol inhaler [address] [facility], [address] [place] [address], [address], 06/27/2024 16:24:54 aspirin 81 mg tablet,de layed release [address] [facility], [address] [place] [address], [address], 05/25/2024 14:46:14 furosemid e 40 mg tablet [address] [facility], [address] [place] [address], [address], 02/17/2024 14:08:21 Patient TargetsNo targets recorded. Patient InstructionsNo instructions recorded. Reason for Referral [facility] Referral for Pain of toe of right foot March please Referring Physician: Alverto Jones, Family Medicine, Encounter Date: 02/17/2024 Orthopedic Surgeon Referral for Osteoarthritis of left knee joint first available appt Referring Physician: Alverto Jones, [place] [facility], Encounter Date: 08/23/2024 Results Created Date Observation Date Name Description Value Unit Range Abnormal Flag Note LastModifiedBy Organization Detail LastModifiedTime 02/17/20 24 02/18/2024 TSH+F REE T4 TSH 1.330 uIU/m L 0.450- 4.500 normal Not Available [facility] ([facility]) [address] [place], [address], 02/18/2024 08:12:42 02/17/2002/18/2024 TSH+F REE T4 T4,free(dire ct) 1.75 NG/dL 0.82-1 .77 normal Not Available [facility] ([facility]) [address] [place], [address], 02/18/2024 08:12:42 02/17/20 24 02/18/2024 CBC WITH DIFFE RENTI AL/PL ATELE T WBC 7.6 x10e3 /uL 3.4-10 .8 normal Not Available [facility] ([facility]) [address] [place], [address], 02/18/2024 08:12:43 02/17/20 24 02/18/2024 CBC WITH DIFFE RENTI AL/PL ATELE T RBC 5.09 x10e6 /uL 4.14-5 .80 normal Not Available [facility] ([facility]) [address] [place], [address], 02/18/2024 08:12:43 02/17/20 24 02/18/2024 CBC WITH DIFFE RENTI AL/PL ATELE T hemoglobin 14.5 g/dL 13.0-1 7.7 normal Not Available [facility] ([facility]) [address] [place], [address], 02/18/2024 08:12:43 02/17/20 24 02/18/2024 CBC WITH DIFFE RENTI AL/PL ATELE T hematocrit 44.8 % 37.5-5 1.0 normal Not Available [facility] ([facility]) [address] [facility], [place], [address], 02/18/2024 08:12:43 02/17/20 24 02/18/2024 CBC WITH DIFFE RENTI AL/PL ATELE T MCV 88 fL 79-97 normal Not Available [facility] ([facility]) [address] [facility], [place], [address], 02/18/2024 08:12:43 02/17/20 24 02/18/2024 CBC WITH DIFFE RENTI AL/PL ATELE T MCH 28.5 pg 26.6-3 3.0 normal Not Available [facility] ([facility]) [address] [facility], [place], [address], 02/18/2024 08:12:43 02/17/20 24 02/18/2024 CBC WITH DIFFE RENTI AL/PL ATELE T MCHC 32.4 g/dL 31.5-3 5.7 normal Not Available [facility] ([facility]) [address] [facility], [place], [address], 02/18/2024 08:12:43 02/17/20 24 02/18/2024 CBC WITH DIFFE RENTI AL/PL ATELE T RDW 13.1 % 11.6-1 5.4 Not Available [facility] ([facility]) [address] [place], [address], 02/18/2024 08:12:43 02/17/20 24 02/18/2024 CBC WITH DIFFE RENTI AL/PL ATELE T platelets 194 x10e3 /uL 150-45 0 normal Not Available [facility] ([facility]) [address] [facility], [place], [address], 02/18/2024 08:12:43 02/17/20 24 02/18/2024 CBC WITH DIFFE RENTI AL/PL ATELE T neutrophils 76 % not estab. normal Not Available [facility] ([facility]) [address] [facility], [place], [address], 02/18/2024 08:12:43 02/17/20 24 02/18/2024 CBC WITH DIFFE RENTI AL/PL ATELE T lymphs 18 % not estab. normal Not Available [facility] ([facility]) [address] [facility], [place], [address], 02/18/2024 08:12:43 02/17/20 24 02/18/2024 CBC WITH DIFFE RENTI AL/PL ATELE T monocytes 5 % not estab. normal Not Available [facility] ([facility]) [address] [facility], [place], [address], 02/18/2024 08:12:43 02/17/20 24 02/18/2024 CBC WITH DIFFE RENTI AL/PL ATELE T eos 1 % not estab. normal Not Available [facility] ([facility]) [address] [facility], [place], [address], 02/18/2024 08:12:43 02/17/20 24 02/18/2024 CBC WITH DIFFE RENTI AL/PL ATELE T basos 0 % not estab. normal Not Available [facility] ([facility]) [address] [facility], [place], [address], 02/18/2024 08:12:43 02/17/20 24 02/18/2024 CBC WITH DIFFE RENTI AL/PL ATELE T immature cells 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 Not Available [facility] ([facility]) [address] [facility], [place], [address], 02/18/2024 08:12:43 02/17/20 24 02/18/2024 CBC WITH DIFFE RENTI AL/PL ATELE T neutrophils (absolute) 5.7 x10e3 /uL 1.4-7. 0 normal Not Available [facility] ([facility]) [address] [facility], [place], [address], 02/18/2024 08:12:43 02/17/20 24 02/18/2024 CBC WITH DIFFE RENTI AL/PL ATELE T lymphs (absolute) 1.3 x10e3 /uL 0.7-3. 1 normal Not Available [facility] ([facility]) [address] [facility], [place], [address], 02/18/2024 08:12:43 02/17/20 24 02/18/2024 CBC WITH DIFFE RENTI AL/PL ATELE T monocytes(ab solute) 0.4 x10e3 /uL 0.1-0. 9 normal Not Available [facility] ([facility]) [address] [facility], [place], [address], 02/18/2024 08:12:43 02/17/20 24 02/18/2024 CBC WITH DIFFE RENTI AL/PL ATELE T eos (absolute) 0.1 x10e3 /uL 0.0-0. 4 normal Not Available [facility] ([facility]) [address] [facility], [place], [address], 02/18/2024 08:12:43 02/17/20 24 02/18/2024 CBC WITH DIFFE RENTI AL/PL ATELE T baso (absolute) 0.0 x10e3 /uL 0.0-0. 2 normal Not Available [facility] ([facility]) [address] [facility], [place], [address], 02/18/2024 08:12:43 02/17/20 24 02/18/2024 CBC WITH DIFFE RENTI AL/PL ATELE T immature granulocytes 0 % not estab. Not Available [facility] ([facility]) [address] [facility], [place], [address], 02/18/2024 08:12:43 02/17/20 24 02/18/2024 CBC WITH DIFFE RENTI AL/PL ATELE T immature grans (abs) 0.0 x10e3 /uL 0.0-0. 1 Not Available [facility] ([facility]) [address] [facility], [place], [address], 02/18/2024 08:12:43 02/17/20 24 02/18/2024 CBC WITH DIFFE RENTI AL/PL ATELE T NRBC 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 Not Available [facility] ([facility]) [address] [facility], [place], [address], 02/18/2024 08:12:43 02/17/20 24 02/18/2024 CBC WITH DIFFE RENTI AL/PL ATELE T hematology comments: 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 Not Available [facility] ([facility]) [address] [facility], [place], [address], 02/18/2024 08:12:43 02/17/20 24 02/18/2024 COMP. METAB OLIC PANEL (14) glucose 102 mg/dL 70-99 above high normal Not Available [facility] ([facility]) [address] [facility], [place], [address], 02/18/2024 08:12:44 02/17/20 24 02/18/2024 COMP. METAB OLIC PANEL (14) BUN 17 mg/dL 6-24 normal Not Available [facility] ([facility]) [address] [facility], [place], [address], 02/18/2024 08:12:44 02/17/20 24 02/18/2024 COMP. METAB OLIC PANEL (14) creatinine 0.83 mg/dL 0.76-1 .27 normal Not Available [facility] ([facility]) [address] [facility], [place], [address], 02/18/2024 08:12:44 02/17/20 24 02/18/2024 COMP. METAB OLIC PANEL (14) eGFR 111 mL/mi n/1.7 3 >59 normal Not Available [facility] ([facility]) [address] [place], [address], 02/18/2024 08:12:44 02/17/20 24 02/18/2024 COMP. METAB OLIC PANEL (14) BUN/creatini ne ratio 20 9-20 normal Not Available [facility] ([facility]) [address] [place], [address], 02/18/2024 08:12:44 02/17/20 24 02/18/2024 COMP. METAB OLIC PANEL (14) sodium 141 mmol/ L 134-14 4 normal Not Available [facility] ([facility]) [address] [place], [address], 02/18/2024 08:12:44 02/17/20 24 02/18/2024 COMP. METAB OLIC PANEL (14) potassium 4.1 mmol/ L 3.5-5. 2 normal Not Available [facility] ([facility]) [address], [place], [address], 02/18/2024 08:12:44 02/17/20 24 02/18/2024 COMP. METAB OLIC PANEL (14) chloride 103 mmol/ L 96-106 normal Not Available [facility] ([facility]) [address] [place], [address], 02/18/2024 08:12:44 02/17/20 24 02/18/2024 COMP. METAB OLIC PANEL (14) carbon dioxide, total 23 mmol/ L 20-29 normal Not Available [facility] ([facility]) [address] [place], [address], 02/18/2024 08:12:44 02/17/20 24 02/18/2024 COMP. METAB OLIC PANEL (14) calcium 8.8 mg/dL 8.7-10 .2 normal Not Available [facility] ([facility]) [address] [place], [address], 02/18/2024 08:12:44 02/17/20 24 02/18/2024 COMP. METAB OLIC PANEL (14) protein, total 6.8 g/dL 6.0-8. 5 normal Not Available [facility] ([facility]) [address], [place], [address], 02/18/2024 08:12:44 02/17/20 24 02/18/2024 COMP. METAB OLIC PANEL (14) albumin 4.0 g/dL 4.1-5. 1 below low normal Not Available [facility] ([facility]) [address] [place], [address], 02/18/2024 08:12:44 02/17/20 24 02/18/2024 COMP. METAB OLIC PANEL (14) globulin, total 2.8 g/dL 1.5-4. 5 Not Available [facility] ([facility]) [address], [place], [address], 02/18/2024 08:12:44 02/17/20 24 02/18/2024 COMP. METAB OLIC PANEL (14) bilirubin, total 0.4 mg/dL 0.0-1. 2 normal Not Available [facility] ([facility]) [address], [place], [address], 02/18/2024 08:12:44 02/17/20 24 02/18/2024 COMP. METAB OLIC PANEL (14) alkaline phosphatase 103 IU/L 44-121 normal Not Available [facility] ([facility]) [address] [place], [address], 02/18/2024 08:12:44 02/17/20 24 02/18/2024 COMP. METAB OLIC PANEL (14) AST (SGOT) 24 IU/L 0-40 normal Not Available [facility] ([facility]) [address], [place], [address], 02/18/2024 08:12:44 02/17/20 24 02/18/2024 COMP. METAB OLIC PANEL (14) ALT (SGPT) 31 IU/L 0-44 normal Not Available [facility] ([facility]) [address] [facility], [place], [address], 02/18/2024 08:12:44 02/17/20 24 02/18/2024 HEMOG LOBIN A1C hemoglobin A1C 5.3 % 4.8-5. 6 normal Predi abete s: 5.7 - 6.4 Diabe troy: >6.4 Glyce danae contr ol for adult s with diabe troy: <7.0 Not Available [facility] ([facility]) [address] [facility], [place], [address], 02/18/2024 08:12:44 02/17/20 24 02/18/2024 VITAM IN D, 25-HY DROXY vitamin D, 25-hydroxy 35.9 NG/mL 30.0-1 00.0 Vitam in D defic iency has been defin ed by the Insti tute of Medic ine and an Endoc rine Socie ty pract ice guide line as a level of serum 25-OH vitam in D less than 20 ng/mL (1,2) . The Endoc rine Socie ty went on to furth er defin e vitam in D insuf ficie ncy as a level betwe en 21 and 29 ng/mL (2). 1. IOM (Inst itute of Medic ine). 2010. Dieta ry refer ence intak es for calci um and D. Aleshia lr [place]: The Natio nal [facility] Press . 2. Gino gan [place], Ernie thrasher [place], Grant off-F errar i [place], et al. Evalu ation , treat ment, and preve ntion of vitam in D defic iency : an Endoc rine Socie ty clini rosi pract ice guide line. JCEM. 2010; 96(7) :1911 -30. Not Available [facility] ([facility]) [address] [facility], [place], [address], 02/18/2024 08:12:45 08/24/1908/24/2024 CBC WITH DIFFE RENTI AL/PL ATELE T WBC 7.4 x10e3 /uL 3.4-10 .8 normal Not Available [facility] ([facility]) [address] [facility], [place], [address], 08/24/2024 09:08:31 08/24/1908/24/2024 CBC WITH DIFFE RENTI AL/PL ATELE T RBC 5.38 x10e6 /uL 4.14-5 .80 normal Not Available [facility] ([facility]) [address] [place], [address], 08/24/2024 09:08:31 08/24/1908/24/2024 CBC WITH DIFFE RENTI AL/PL ATELE T hemoglobin 15.2 g/dL 13.0-1 7.7 normal Not Available [facility] ([facility]) [address] [place], [address], 08/24/2024 09:08:31 08/24/1908/24/2024 CBC WITH DIFFE RENTI AL/PL ATELE T hematocrit 48.2 % 37.5-5 1.0 normal Not Available [facility] ([facility]) [address] [place], [address], 08/24/2024 09:08:31 08/24/1908/24/2024 CBC WITH DIFFE RENTI AL/PL ATELE T MCV 90 fL 79-97 normal Not Available [facility] ([facility]) [address] [place], [address], 08/24/2024 09:08:31 08/24/1908/24/2024 CBC WITH DIFFE RENTI AL/PL ATELE T MCH 28.3 pg 26.6-3 3.0 normal Not Available [facility] ([facility]) [address] [place], [address], 08/24/2024 09:08:31 08/24/1908/24/2024 CBC WITH DIFFE RENTI AL/PL ATELE T MCHC 31.5 g/dL 31.5-3 5.7 normal Not Available [facility] ([facility]) [address] [facility], [place], [address], 08/24/2024 09:08:31 08/24/1908/24/2024 CBC WITH DIFFE RENTI AL/PL ATELE T RDW 14.3 % 11.6-1 5.4 Not Available [facility] ([facility]) [address] [facility], [place], [address], 08/24/2024 09:08:31 08/24/1908/24/2024 CBC WITH DIFFE RENTI AL/PL ATELE T platelets 257 x10e3 /uL 150-45 0 normal Not Available [facility] ([facility]) [address] [facility], [place], [address], 08/24/2024 09:08:31 08/24/1908/24/2024 CBC WITH DIFFE RENTI AL/PL ATELE T neutrophils 63 % not estab. normal Not Available [facility] ([facility]) [address] [facility], [place], [address], 08/24/2024 09:08:31 08/24/1908/24/2024 CBC WITH DIFFE RENTI AL/PL ATELE T lymphs 23 % not estab. normal Not Available [facility] ([facility]) [address] [place], [address], 08/24/2024 09:08:31 08/24/1908/24/2024 CBC WITH DIFFE RENTI AL/PL ATELE T monocytes 6 % not estab. normal Not Available [facility] ([facility]) [address] [place], [address], 08/24/2024 09:08:31 08/24/1908/24/2024 CBC WITH DIFFE RENTI AL/PL ATELE T eos 6 % not estab. normal Not Available [facility] ([facility]) [address] [facility], [place], [address], 08/24/2024 09:08:31 08/24/1908/24/2024 CBC WITH DIFFE RENTI AL/PL ATELE T basos 1 % not estab. normal Not Available [facility] ([facility]) [address] [facility], [place], [address], 08/24/2024 09:08:31 08/24/1908/24/2024 CBC WITH DIFFE RENTI AL/PL ATELE T immature cells 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 Not Available [facility] ([facility]) [address] [place], [address], 08/24/2024 09:08:31 08/24/1908/24/2024 CBC WITH DIFFE RENTI AL/PL ATELE T neutrophils (absolute) 4.7 x10e3 /uL 1.4-7. 0 normal Not Available [facility] ([facility]) [address] [place], [address], 08/24/2024 09:08:31 08/24/1908/24/2024 CBC WITH DIFFE RENTI AL/PL ATELE T lymphs (absolute) 1.7 x10e3 /uL 0.7-3. 1 normal Not Available [facility] ([facility]) [address] [place], [address], 08/24/2024 09:08:31 08/24/1908/24/2024 CBC WITH DIFFE RENTI AL/PL ATELE T monocytes(ab solute) 0.5 x10e3 /uL 0.1-0. 9 normal Not Available [facility] ([facility]) [address] [place], [address], 08/24/2024 09:08:31 08/24/19 25 08/24/2024 CBC WITH DIFFE RENTI AL/PL ATELE T eos (absolute) 0.4 x10e3 /uL 0.0-0. 4 normal Not Available [facility] ([facility]) [address] [facility], [place], [address], 08/24/2024 09:08:31 08/24/1908/24/2024 CBC WITH DIFFE RENTI AL/PL ATELE T baso (absolute) 0.0 x10e3 /uL 0.0-0. 2 normal Not Available [facility] ([facility]) [address] [facility], [place], [address], 08/24/2024 09:08:31 08/24/1908/24/2024 CBC WITH DIFFE RENTI AL/PL ATELE T immature granulocytes 1 % not estab. Not Available [facility] ([facility]) [address] [facility], [place], [address], 08/24/2024 09:08:31 08/24/1908/24/2024 CBC WITH DIFFE RENTI AL/PL ATELE T immature grans (abs) 0.0 x10e3 /uL 0.0-0. 1 Not Available [facility] ([facility]) [address] [facility], [place], [address], 08/24/2024 09:08:31 08/24/1908/24/2024 CBC WITH DIFFE RENTI AL/PL ATELE T NRBC 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 Not Available [facility] ([facility]) [address] [facility], [place], [address], 08/24/2024 09:08:31 08/24/1908/24/2024 CBC WITH DIFFE RENTI AL/PL ATELE T hematology comments: 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 Not Available [facility] ([facility]) [address] [facility], [place], [address], 08/24/2024 09:08:31 08/24/19 25 08/24/2024 COMP. METAB OLIC PANEL (14) glucose 95 mg/dL 70-99 normal Not Available [facility] ([facility]) [address] [place], [address], 08/24/2024 09:08:32 08/24/19 25 08/24/2024 COMP. METAB OLIC PANEL (14) BUN 9 mg/dL 6-24 normal Not Available [facility] ([facility]) [address] [place], [address], 08/24/2024 09:08:32 08/24/19 25 08/24/2024 COMP. METAB OLIC PANEL (14) creatinine 0.76 mg/dL 0.76-1 .27 normal Not Available [facility] ([facility]) [address] [place], [address], 08/24/2024 09:08:32 08/24/19 25 08/24/2024 COMP. METAB OLIC PANEL (14) eGFR 114 mL/mi n/1.7 3 >59 normal Not Available [facility] ([facility]) [address] [place], [address], 08/24/2024 09:08:32 08/24/19 25 08/24/2024 COMP. METAB OLIC PANEL (14) BUN/creatini ne ratio 12 9-20 normal Not Available [facility] ([facility]) [address] [place], [address], 08/24/2024 09:08:32 08/24/19 25 08/24/2024 COMP. METAB OLIC PANEL (14) sodium 138 mmol/ L 134-14 4 normal Not Available [facility] ([facility]) [address] [place], [address], 08/24/2024 09:08:32 08/24/19 25 08/24/2024 COMP. METAB OLIC PANEL (14) potassium 4.3 mmol/ L 3.5-5. 2 normal Not Available [facility] ([facility]) [address] [place], [address], 08/24/2024 09:08:32 08/24/19 25 08/24/2024 COMP. METAB OLIC PANEL (14) chloride 101 mmol/ L 96-106 normal Not Available [facility] ([facility]) [address] [place], [address], 08/24/2024 09:08:32 08/24/19 25 08/24/2024 COMP. METAB OLIC PANEL (14) carbon dioxide, total 23 mmol/ L 20-29 normal Not Available [facility] ([facility]) [address] [place], [address], 08/24/2024 09:08:32 08/24/19 25 08/24/2024 COMP. METAB OLIC PANEL (14) calcium 8.9 mg/dL 8.7-10 .2 normal Not Available [facility] ([facility]) [address] [place], [id number], 08/24/2024 09:08:32 08/24/19 25 08/24/2024 COMP. METAB OLIC PANEL (14) protein, total 7.1 g/dL 6.0-8. 5 normal Not Available [facility] ([facility]) [address] [place], [address], 08/24/2024 09:08:32 08/24/19 25 08/24/2024 COMP. METAB OLIC PANEL (14) albumin 4.1 g/dL 4.1-5. 1 normal Not Available [facility] ([facility]) [address] [place], [address], 08/24/2024 09:08:32 08/24/19 25 08/24/2024 COMP. METAB OLIC PANEL (14) globulin, total 3.0 g/dL 1.5-4. 5 Not Available [facility] ([facility]) [address] [place], [address], 08/24/2024 09:08:32 08/24/19 25 08/24/2024 COMP. METAB OLIC PANEL (14) bilirubin, total 0.4 mg/dL 0.0-1. 2 normal Not Available [facility] ([facility]) [address] [place], [address], 08/24/2024 09:08:32 08/24/19 25 08/24/2024 COMP. METAB OLIC PANEL (14) alkaline phosphatase 103 IU/L 44-121 normal Not Available [facility] ([facility]) [address] [place], [address], 08/24/2024 09:08:32 08/24/19 25 08/24/2024 COMP. METAB OLIC PANEL (14) AST (SGOT) 24 IU/L 0-40 normal Not Available [facility] ([facility]) [address] [place], [address], 08/24/2024 09:08:32 08/24/19 25 08/24/2024 COMP. METAB OLIC PANEL (14) ALT (SGPT) 20 IU/L 0-44 normal Not Available [facility] ([facility]) [address] [place], [address], 08/24/2024 09:08:32 08/24/19 25 08/24/2024 UA/M W/RFL X CULTU RE, ROUTI NE specific gravity 1.027 1.005- 1.030 normal Not Available [facility] ([facility]) [address] [place], [address], 08/24/2024 09:08:32 08/24/19 25 08/24/2024 UA/M W/RFL X CULTU RE, ROUTI NE pH 7.5 5.0-7. 5 normal Not Available [facility] ([facility]) [address] [facility], [place], [address], 08/24/2024 09:08:32 08/24/19 25 08/24/2024 UA/M W/RFL X CULTU RE, ROUTI NE urine-color Yellow yellow Not Available [facility] ([facility]) [address] [facility], [place], [address], 08/24/2024 09:08:32 08/24/19 25 08/24/2024 UA/M W/RFL X CULTU RE, ROUTI NE appearance Cloudy clear abnormal Not Available [facility] ([facility]) [address] [facility], [place], [address], 08/24/2024 09:08:32 08/24/19 25 08/24/2024 UA/M W/RFL X CULTU RE, ROUTI NE WBC esterase Negati ve negati ve Not Available [facility] ([facility]) [address] [facility], [place], [address], 08/24/2024 09:08:32 08/24/19 25 08/24/2024 UA/M W/RFL X CULTU RE, ROUTI NE protein Trace negati ve/tra ce Not Available [facility] ([facility]) [address] [facility], [place], [address], 08/24/2024 09:08:32 08/24/19 25 08/24/2024 UA/M W/RFL X CULTU RE, ROUTI NE glucose Negati ve negati ve Not Available [facility] ([facility]) [address] [place], [address], 08/24/2024 09:08:32 08/24/19 25 08/24/2024 UA/M W/RFL X CULTU RE, ROUTI NE ketones Negati ve negati ve Not Available [facility] ([facility]) [address] [facility], [place], [address], 08/24/2024 09:08:32 08/24/19 25 08/24/2024 UA/M W/RFL X CULTU RE, ROUTI NE occult blood Negati ve negati ve Not Available [facility] ([facility]) [address] [facility], [place], [address], 08/24/2024 09:08:32 08/24/19 25 08/24/2024 UA/M W/RFL X CULTU RE, ROUTI NE bilirubin Negati ve negati ve Not Available [facility] ([facility]) [address] [facility], [place], [address], 08/24/2024 09:08:32 08/24/19 25 08/24/2024 UA/M W/RFL X CULTU RE, ROUTI NE urobilinogen ,semi-qn 1.0 mg/dL 0.2-1. 0 normal Not Available [facility] ([facility]) [address] [facility], [place], [address], 08/24/2024 09:08:32 08/24/19 25 08/24/2024 UA/M W/RFL X CULTU RE, ROUTI NE nitrite, urine Negati ve negati ve Not Available [facility] ([facility]) [address] [place], [address], 08/24/2024 09:08:32 08/24/19 25 08/24/2024 UA/M W/RFL X CULTU RE, ROUTI NE microscopic examination Commen t Micro scopi c follo ws if indic ated. Not Available [facility] ([facility]) [address] [place], [address], 08/24/2024 09:08:32 08/24/19 25 08/24/2024 UA/M W/RFL X CULTU RE, ROUTI NE microscopic examination See below: Micro scopi c was indic ated and was perfo rmed. Not Available [facility] ([facility]) [address] [place], [address], 08/24/2024 09:08:32 08/24/19 25 08/24/2024 UA/M W/RFL X CULTU RE, ROUTI NE WBC None seen /hpf 0 - 5 Not Available [facility] ([facility]) [address], [place], [address], 08/24/2024 09:08:32 08/24/19 25 08/24/2024 UA/M W/RFL X CULTU RE, ROUTI NE RBC None seen /hpf 0 - 2 Not Available [facility] ([facility]) [address] [facility], [place], [address], 08/24/2024 09:08:32 08/24/19 25 08/24/2024 UA/M W/RFL X CULTU RE, ROUTI NE epithelial cells (non renal) None seen /hpf 0 - 10 Not Available [facility] ([facility]) [address], [place], [address], 08/24/2024 09:08:32 08/24/19 25 08/24/2024 UA/M W/RFL X CULTU RE, ROUTI NE epithelial cells (renal) 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 Not Available [facility] ([facility]) [address] [facility], [place], [address], 08/24/2024 09:08:32 08/24/19 25 08/24/2024 UA/M W/RFL X CULTU RE, ROUTI NE casts None seen /lpf none seen Not Available [facility] ([facility]) [address] [facility], [place], [address], 08/24/2024 09:08:32 08/24/19 25 08/24/2024 UA/M W/RFL X CULTU RE, ROUTI NE cast type 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 Not Available [facility] ([facility]) [address] [facility], [place], [address], 08/24/2024 09:08:32 08/24/19 25 08/24/2024 LIPID PANEL cholesterol, total 139 mg/dL 100-19 9 normal Not Available [facility] ([facility]) [address] [facility], [place], [address], 08/24/2024 09:08:33 08/24/19 25 08/24/2024 LIPID PANEL triglyceride s 96 mg/dL 0-149 normal Not Available [facility] ([facility]) [address] [facility], [place], [address], 08/24/2024 09:08:33 08/24/19 25 08/24/2024 LIPID PANEL HDL cholesterol 41 mg/dL >39 normal Not Available [facility] [address] [facility], [place], [address], 08/24/2024 09:08:33 08/24/19 25 08/24/2024 LIPID PANEL VLDL cholesterol rosi 18 mg/dL 5-40 Not Available [facility] ([facility]) [address] [facility], [place], [address], 08/24/2024 09:08:33 08/24/19 25 08/24/2024 LIPID PANEL LDL chol calc ([facility]) 80 mg/dL 0-99 Not Available [facility] [address] [facility], [place], [address], 08/24/2024 09:08:33 08/24/19 25 08/24/2024 LIPID PANEL LDL calc comment: 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 6 normal Predi abete s: 5.7 - 6.4 Diabe troy: >6.4 Glyce danae contr ol for adult s with diabe troy: <7.0 Not Available [facility] ([facility]) [address] [facility], [place], [address], 08/24/2024 09:08:34 08/24/19 25 08/24/2024 PROST ATE-S PECIF IC AG prostate specific Ag 0.4 NG/mL 0.0-4. 0 normal Devorah ECLIA metho dolog y. Accor ding to the Ameri can Urolo gical Assoc iatio n, Serum PSA shoul d decre ase and remai n at undet ectab le level s after radic al prost atect rm. The AUA defin es bioch emica l recur rence as an initi al PSA value 0.2 ng/mL or great er follo wed by a subse quent confi rmato ry PSA value 0.2 ng/mL or great er. Value s obtai cinda with diffe rent assay metho ds or kits canno t be used inter de leon eably . Resul ts canno t be inter prete d as absol joe evide nce of the prese nce or absen ce of bunny kemp se. Not Available [facility] ([facility]) [address] [facility], [place], [address], 08/24/2024 09:08:34 08/24/19 25 08/24/2024 VITAM IN D, 25-HY DROXY vitamin D, 25-hydroxy 27.0 NG/mL 30.0-1 00.0 below low normal Vitam in D defic iency has been defin ed by the Insti tute of Medic ine and an Endoc rine Socie ty pract ice guide line as a level of serum 25-OH vitam in D less than 20 ng/mL (1,2) . The Endoc rine Socie ty went on to furth er defin e vitam in D insuf ficie ncy as a level betwe en 21 and 29 ng/mL (2). 1. IOM (Inst itute of Medic ine). 2010. Dieta ry refer ence intak es for calci um and D. Aleshia lr [place]: The [facility] Press . 2. Gino gan MF, Ernie ey [place], Grant off-F errar i [place], et al. Evalu ation , treat ment, and preve ntion of vitam in D defic iency : an Endoc rine Socie ty clini rosi pract ice guide line. JCEM. 2010; 96(7) :1911 -30. Not Available [facility] ([facility]) [address] [facility], [place], [address], 08/24/2024 09:08:35 08/24/19 25 08/24/2024 TSH RFX ON ABNOR MAL TO FREE T4 TSH 2.040 uIU/m L 0.450- 4.500 normal Not Available [facility] ([facility]) [address] [facility], [place], [address], 08/24/2024 09:08:35 08/24/19 25 08/24/2024 URIC ACID uric acid 5.9 mg/dL 3.8-8. 4 normal Thera peuti c targe t for gout patie nts: <6.0 Not Available [facility] ([facility]) [address] [place], [address], 08/24/2024 09:08:36 04/11/19 25 04/11/2024 XR, foot, 3 or more view No observ ation record ed. [email or web address] [facility] [address], [place], [address], 04/11/2024 11:27:05 04/11/19 25 04/11/2024 XR, foot, 3 or more view No observ ation record ed. [email or web address] [facility] [address], [place], [address], 04/11/2024 11:26:36 07/19/19 25 07/14/2024 XR, hip + pelvi s, bilat eral, 2 view No observ ation record ed. [email or web address] [facility] (Radiology) [address], [place], [address], 07/18/2024 12:37:45 08/24/19 25 XR, knee, 3 view No observ ation record ed. [address], [place], [address], 08/23/2024 17:56:09 08/26/19 25 US, duple x, venou s, lower extre mity No observ ation record ed. [email or web address] [place] [address] - [facility] [address] [facility], [place], [address], 08/29/2024 10:36:50 Result Notes None recorded. Problems Name Problem SNOMED Code Status Onset Date Resolution Date Notes Provider Name and Address Organization Details Recorded Time Peripher al vascular disease 760898827 Active 2020 Not Available [employer] 2 22:21:15 Hyperten sive disorder 91557027 Active 2021 Problem Code: I10; Problem Code Type: ICD-10; Not Available [employer] 2 22:21:15 Moderate recurren t major depressi on 64583688 Active 2021 Problem Code: F33.1; Problem Code Type: ICD-10; Not Available [facility] 2 22:21:15 Body mass index 40+ - severely obese 598027407 Active 2021 Not Available [facility] 2 22:21:16 Mixed hyperlip idemia 093037494 Active 2021 Problem Code: E78.2; Problem Code Type: ICD-10; Not Available [facility] 22:21:15 Gout 52537832 Completed 202209/24/2023 Removal Reason: mariola ace Taylor James NP [address] [place], [address] , [employer] 4 14:35:31 Generali zed osteoart hritis 223047349 Active 2022 Taylor James NP [address] [place] [address], [address] , [place] [employer] 4 14:35:22 Chronic gouty arthriti s 26391913 Active 2023 Taylor James NP [address] [place] [address], [address] , [employer] 4 14:35:20 Vitamin D deficien cy 65534023 Active 2023 Alverto Jones APRN [address] [place] [address], [address] , [employer] 4 13:15:26 Deep venous thrombos is of lower extremit y 646950633 Active 2024 Alverto Jones APRN [address] [place] [address], [address] , [employer] 5 14:21:37 Osteoart hritis of left knee joint 17883954825 9109 Active 2024 Alverto Jones APRN [address] [place] [address], [address] , [employer] 5 09:21:02 Indigest ion 278323382 Active 2024 Alverto Jones APRN [address] [place] [address], [address] , [employer] 5 15:45:31 Open wound of lesser toe of left foot 29599266704 042672 Active 2024 Alverto Jones APRN [address] [place], [address] , [employer] 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 Procedures Surgical History Date Name Laterality Status Provider Name and Address Organization Details Recorded Time 12/14/19 complete repair of rotator cuff completed Alverto Jones APRN [address] [place] [address], [address], [employer] 01/13/2024 15:42:32 10/25/19 21 repair of ankle completed Not Available [facility] 08/2021 22:56:18 10/25/19 21 tonsillectomy and adenoidectomy completed Not Available [facility] 11/19/2021 22:56:19 Imaging Results None recorded. Procedure Notes None recorded. Medical Equipment None Reported. Allergies Allergen ID Allergen Name Allergen Category Reaction Reaction Severity Criticality Documentation Date Start Date Code Code System Note Provider Name and Address Organization Details Recorded Time 10442 Bactrim medicatio n Not available Not available Not available 11/19/2021 60432 9 RxNorm Not Available [facility] 22:56:32 18880 sulfameth oxazole / trimethop rim medicatio n Not available Not available [facility] 02/06/20252022 05272 RxNorm unrec ogniz ed react ion (text : GI Intol eranc e, code: 71431 4005) (from exter nal sourc e) unrec ogniz ed react ion (text : Irrit abili ty, code: 92000 6000) (from ext nal sourc e) Not Available edd - External Data Service - prod 16:31:44 [...] Heart rate Oxygen saturation Systolic And Diastolic Systolic And Diastolic Provider Name and Address Organization Details Last Updated DateTime 5 180.34 cm 65.6 kg/m2 642111. 41 g 97.8 [degF] 75 /min 95 % 174/98 mm[Hg] 139/83 mm[Hg] [employer] 5 13:52:04 Date Recorded Body height Body mass index (BMI) Body weight Body temperature Heart rate Oxygen saturation Systolic And Diastolic Systolic And Diastolic Provider Name and Address Organization Details Last Updated DateTime 5 180.34 cm 64.3 kg/m2 885337. 08 g 99.4 [degF] 83 /min 95 % 144/87 mm[Hg] 126/74 mm[Hg] [employer] 5 17:25:50 Date Recorded Body height Body mass index (BMI) Body weight Body temperature Heart rate Oxygen saturation Systolic And Diastolic Systolic And Diastolic Provider Name and Address Organization Details Last Updated DateTime 5 180.34 cm 65.8 kg/m2 908515. 16 g 98.1 [degF] 90 /min 94 % 157/82 mm[Hg] 134/75 mm[Hg] MICHAEL GUAJARDO [employer] 5 09:04:01 Date Recorded Body height Body mass index (BMI) Body weight Body temperature Heart rate Oxygen saturation Systolic And Diastolic Provider Name and Address Organization Details Last Updated DateTime 5 180.34 cm 64.5 kg/m2 625711. 11 g 98.1 [degF] 82 /min 96 % 126/80 mm[Hg] MICHAEL GUAJARDO [employer] 5 15:19:10 Date Recorded Body height Body mass index (BMI) Body weight Body temperature Heart rate Oxygen saturation Systolic And Diastolic Systolic And Diastolic Provider Name and Address Organization Details Last Updated DateTime 4 180.34 cm 68 kg/m2 833516. 64 g 98 [degF] 65 /min 97 % 141/81 mm[Hg] 123/72 mm[Hg] MICHAEL GUAJARDO [employer] 4 13:10:57 Social History Question Answer Notes LastModified by Organizat ion Details LastModified Time Tobacco Smoking Status Never Smoker [employer] 02/11/2022 11:56:43 Do You Have An Advance [...] Do You Have A Medical Power Of Supervisor Matrix? No Information not available 02/11/2022 What Was [...] you have difficulty doing errands alone? No [email or web address] Information not available 10/10/2022 Are you able [...] difficulty concentrating, remembering or making decisions? No latrice Information no t available 10/10/2022 Family History [...] Stones N Blood Diseases N Hyperthyroidism N Blood Transfusion N Breast Cancer N Emergency room visit since last appointm ent. N Hypothyroidism N Lung Disease N Dermatologic Disorders N Depression N COPD N Developmental or Behavioral Disorders N Defects or Inherited Disease N Breast Problem N Difficulty Swallowing N Anesthesia Complications N History of STI N Anxiety Disorder N Meniere's disease N Autoimmune disease N Muscle, Joint, or Bone Problems N Obesity Y Vision or Eye Problems N Arthritis N Infertility N Polyps N Mental Disorder N Congenital Anomalies N Acid Reflux (GERD) N Cancer N Stroke N Neurologic/Epilepsy N Endometriosis N Bladder or Kidney Problems N High Cholesterol N Liver Disease N Organ Transplant N Psychiatric/Mental Health Condition N Headaches N Schizophrenia N Fibromyalgia N [...] split virus, quadrivalent, PF 3 completed Alverto Jones APRN [address] [place], [address], [employer] 02/16/2023 13:00:52 COVID-19 vaccine, vector-nr, rS-Ad26, PF, 0.5 mL 1 completed MICHAEL FIORENEAR brianne, [employer] 02/11/2022 11:54:50 Influenza, split virus, quadrivalent, PF 1 completed MICHAEL MYNEAR null, [employer] 02/11/2022 11:54:50 COVID-19, mRNA, LNP-S, PF, silver-sucrose, 30 mcg/0.3 mL 4 completed Alverto Jones APRN [address] [place], [address], [employer] 02/24/2024 12:08:41 Influenza, MDCK, quadrivalent, PF 0 completed MICHAEL MYNEAR null, [employer] 02/11/2022 11:54:50 Influenza, MDCK, quadrivalent, PF 8 completed MICHAEL MYNEAR null, [employer] 02/11/2022 11:54:50 Td (adult), 2 Lf tetanus toxoid, preservative free, adsorbed 6 completed MICHAEL MYNEAR null, [employer] 02/11/2022 11:54:50 COVID-19 vaccine, vector-nr, rS-Ad26, PF, 0.5 mL 1 completed MICHAEL MYNEAR null, [employer] 02/11/2022 11:54:50 Tdap 3 completed MICHAEL MYNEAR null, [employer] 02/11/2022 11:54:50 Influenza, MDCK, quadrivalent, PF 8 completed Pati Horowitz null, [employer] 10/10/2022 17:07:18 Influenza, split virus, trivalent, PF 5 completed MICHAEL MYNEAR null, [employer] 12/19/2024 15:25:02 Past Encounters Encounter ID Performer Location Encounter Start Date Encounter Closed Date Diagnosis/Indication Diagnosis SNOMED-CT Code Diagnosis ICD10 Code Diagnosis IMO Codes Diagnosis Note [id number] Alverto Jones APRN [address] [address] 02/11/2022 10:59:45 02/11/2022 12:47:16 Hypertensive disorder 69169980 I10 DASH diet, exercise and weight loss again emphasized . He again today declines to see Behavioral Health. Continue CPAP - followed by Sleep Med. Moderate r ecurrent major depression 28623386 F33.1 Chronic ki dney disease stage 2 220399999 N18.2 Administra tion of influenza vaccine 73766702 Z23 Body mass index 40+ - severely obese 732215696 Z68.44 Chronic go uty arthritis 75398502 M1A.00X0 Folliculitis 32192078 L7 3.9 [id number] Alverto Jones [place] [phone] 08/13/2022 09:08:22 08/13/2022 09:52:53 Hypertensive disorder 00481749 I10 DASH diet, exercise and weight loss again emphasized . He again today declines to see Behavioral Health. Continue CPAP - followed by Sleep Med. Mixed hyperlipidemia 267 808176 E78.2 Moderate r ecurrent major depression 24201066 F33.1 Adult heal th examination 552430741 Z00.00 Body mass index 40+ - severely obese 688472318 Z68.44 Thyroid nodule 848733875 E04.1 [id number] Alverto Jones [address] 0 10/10/2022 16:53:42 10/13/2022 08:45:09 Cough 05532032 R05.9 Acute bronchitis 9000471 2 J20.9 Patient presented with symptoms of upper respirator y infection. Advised to drink plenty of fluids, run a cool-mist humidifier in room at night, gargle salt water for sore throat, and get plenty of rest. Patient should avoid over-exert ion and reduce exposure to irritants such as smoke, cold, dry air, and dust. Treatment currently involves symptomati c relief. Patient may take acetaminop hen or ibuprofen as directed to reduce fever and body aches. Antihistam ine and decongesta nt usage was discussed and recommenda tions made. Patient understood these instructio ns and will follow up in the office in 10 days to 2 weeks if symptoms not improving. [id number] Alverto Jones INFLATED BALL MOLDER [place] [phone] 02/16/2023 10:28:16 02/16/2023 11:02:41 Administration of influenza vaccine 66575614 Z23 Hypertensive disorder 38 521852 I10 DASH diet, no med changes today. Continue CPAP. Mixed hyperlipidemia 267 084769 E78.2 Continue statin. Moderate r ecurrent major depression 11287526 F33.1 Continue Zoloft. Severe obesity 145800234 1 9104 E66.01 He continues to refuse referral to Bariatric surgery. Bilateral cramp of muscle of lower limbs 3468161635 9362292 R25.2 Trial Requip. He was encouraged to hydrate well and increase his physical activity. He declined PT. Generalize d osteoarthritis 509061475 M15.9 [id number] Alverto Jones[address] 0 05/05/2023 13:34:05 05/05/2023 14:42:47 Cough 33655529 R05.9 Acute bronchitis 0397351 2 J20.9 Patient presented with symptoms of upper respirator y infection. Advised to drink plenty of fluids, run a cool-mist humidifier in room at night, gargle salt water for sore throat, and get plenty of rest. Patient should avoid over-exert ion and reduce exposure to irritants such as smoke, cold, dry air, and dust. Treatment currently involves symptomati c relief. Patient may take acetaminop hen or ibuprofen as directed to reduce fever and body aches. Antihistam ine and decongesta nt usage was discussed and recommenda tions made. Patient understood these instructio ns and will follow up in the office in 10 days to 2 weeks if symptoms not improving. Continue Mucinex and albuterol inhaler. [id number] [place] [id number] 0 08/18/2023 08:51:39 08/18/2023 09:48:28 Adult health examination 707265024 Z00.00 The patient advised to continue a healthy diet and exercise regularly. He was also advised to:have a dermatogy skin screening . Labs will be sent today. Advised patient to follow up in 6 months or sooner if needed. Mixed hyperlipidemia 267 150907 E78.2 Continue statin. Moderate r ecurrent major depression 29550391 F33.1 Continue Zoloft. Vitamin D deficiency 347 55794 E55.9 Body mass index 40+ - severely obese 787857115 Z68.44 Acute bronchitis 5112803 2 J20.9 Patient presented with symptoms of upper respirator y infection. Advised to drink plenty of fluids, run a cool-mist humidifier in room at night, gargle salt water for sore throat, and get plenty of rest. Patient should avoid over-exert ion and reduce exposure to irritants such as smoke, cold, dry air, and dust. Treatment currently involves symptomati c relief. Patient may take acetaminop hen or ibuprofen as directed to reduce fever and body aches. Antihistam ine and decongesta nt usage was discussed and recommenda tions made. Patient understood these instructio ns and will follow up in the office in 10 days to 2 weeks if symptoms not improving. Continue Mucinex and albuterol inhaler. Gout 00435667 M10.9 Essential hypertension 41247452 I10 Allergic rhinitis 932043 04 J30.9 [id number] Taylor James NP [address] [address] 09/24/2023 15:17:06 09/24/2023 16:07:03 Acute bronchitis 55117729 J20.9 [id number] Alverto Jones APRN [address] [address] 10/26/2023 13:22:38 10/26/2023 13:58:46 Pre-surgery evaluation 923918604 Z01.818 Patient came in today for a pre-operat berenice evaluation . I discussed the procedure and answered any questions. Pre op forms completed. He will need LUCY precaution s per anesthesio logy. He was advised to hold ASA and diclofenac 5 days before surgery. He will need VTE prophylaxi s due to remote hx DVT. [id number] Alverto Jones APRN [address] [address] 01/13/2024 15:15:52 01/13/2024 16:55:33 Postoperative visit 167223573 Z48.89 Keep Ortho f/up appts and complete PT/OT as ordered. Healing and progressin g well without complicati on. Restless l egs syndrome 98769021 G25.81 Refill Requip Vitamin D deficiency 347 20867 E55.9 [id number] Alverto Jones, [place] [phone] 02/17/2024 12:46:34 02/17/2024 13:31:12 Hypertensive disorder 49266313 I10 DASH diet, no med changes today. Continue CPAP. Moderate r ecurrent major depression 41826723 F33.1 Continue Zoloft. 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 Stop ASA and all NSAID drugs as he is now on Eliquis for DVT. Continue Eliquis BID for 90 days and then will plan to to repeat venous duplex in 3 months. I have explained to Bart he will need to take blood thinner for the rest of his life likely. DOMENICA lexe daily encouraged . Chronic pain 82234421 G8 9.29 He cannot take NSAIDS for arthritis further due to now taking Eliquis. Start trial of Cymbalta. Essential hypertension 19532585 I10 Refill Losartan. Body mass index 40+ - severely obese 436392475 Z68.44 [id number] Alverto Jones [address] [address] 08/03/2024 16:32:23 08/03/2024 17:47:42 Acute right otitis media 654629683 H66.91 [id number] Patient presents with signs/symp toms of otitis media. Will treat as below. Supportive care reviewed: humidifier use, raise HOB, saline nasal spray, encourage PO fluids. Recommende d acetaminop hen/ibupro fen PRN pain/fever Follow up as below. [id number] Alverto Jones [address] [address] 08/23/2024 08:48:19 08/23/2024 09:42:17 General examination of patient 540775609 Z00.01 [id number] The patient advised to continue a healthy diet and exercise regularly. He was also advised to:have a dermatogy skin screening . Labs will be sent today. Advised patient to follow up in 6 months or sooner if needed. Hypertensive disorder 38 791444 I10 DASH diet, no med changes today. Continue CPAP. Chronic go uty arthritis 80915802 M1A.00X0 Continue allopurino l Mixed hyperlipidemia 267 585797 E78.2 Continue statin. Moderate r ecurrent major depression 65133101 F33.1 Continue Zoloft. Deep venou s thrombosis of lower extremity 525123998 I82.409 Obtain f/up US. Vitamin D deficiency 347 26389 E55.9 Peripheral vascular disease 588096718 I73.9 DOMENICA hose daily. Weight loss encouraged . Diabetes m ellitus screening 948947170 Z13.1 88888 Morbid obesity 763816100 Z68.44 9220995628 Osteoarthr itis of left knee joint 4687463777 68247 M17.12 1971154 Urinary incontinence 165 189995 R32 29806113 Gout 12585934 M10.9 Essential hypertension 26585524 I10 Refill Losartan. Osteoarthr itis of knee 243425457 M17.9 Chronic pain 49939843 G8 9.29 He cannot take NSAIDS for arthritis further due to now taking Eliquis. Start trial of Cymbalta. Restless l egs syndrome 18197358 G25.81 Refill Requip [id number] Alverto Jones [address] [address] 12/19/2024 14:58:24 12/19/2024 16:48:43 Influenza vaccination given 0424882277 9109 Z23 50644571 Indigestion 768664321 K3 0 50725 Open wound of lesser toe of left foot 6664358581 2554251 S91.105A 26405910 Goals Section Goal Description Progress Status Start Date LastModified by Organization Details LastModified Time Housing [facility] will assist patient with finding handicapped housing within [place] or [place] within in the next 6 months so [...] Jagruti Springer Not Available 09/08/2024 19:02 :48 Advance Directives Directive N: Payers Insurance Date Sequence Insurance Name Policy Number Policy Longo Covered Member ID Longo Member ID Guarantor Name 08/29/2024 SLIDING FEE SCHEDULE - DISCOUNT George Leon 08/04/2024 1 [place]MEDICARE REPLACEMENT HMO) [id number] George Leon [id number] George Leon 12/16/2024 2 MEDICAID-[facility] - FFS/TRADITIONA L George Leon [id number] George Leon 12/16/2024 MED[place] [employer] - [facility] George Leon [id number] George Leon 12/16/2024 1 [employer] (MEDICARE REPLACEMENT/AD VANTAGE - PPO) [id number] George Leon [id number] George Leon Notes Date Note Type Note Provider Name and Address Organization Details Recorded Time 02/17/20 24 text/htm l Anxiety/DepressionReported by PatientHPIFor context, patient reportsrecent medical event,major life stressors, andfamily problems. For associated symptoms, patient reportsdepressionbut reportsdenies homicidal ideations,no significant weight gain,no significant weight loss,no visual/auditory hallucinations,no delusions,no shortness of breath,no panic,sleeping well,appetite good,no apathy, andmaintaining functionality. For severity, patient reportsdenies suicidal ideations,able to maintain relationships,does not interfere with activities of daily living, andsymptoms improved. For duration, patient reportschronic. For onset/timing, patient reportsfrequent. For modifying factors, patient reportsmedications as directed.chronic gouty Osteoarthritis of multiple joints. HyperlipidemiaReported by PatientHPIFor duration, patient reportschronic. For adherence to treatment plan, patient reportsdoes not follow recommended dietanddoes not exercisebut reportstakes medications as prescribed. For risk factors, patient reportsfamily history of premature arteriosclerotic cardiovascular disease,obesity, andconsumption of saturated fats and trans-fatty acids. For control, patient reportsusually well controlled. For complications, patient reportsno coronary artery disease,no peripheral artery disease, andno cardiovascular disease. Hypertension F/UReported by PatientHPIFor lifestyle, patient reportsnot exercising regularlyanddoes not adhere to low sodium diet. For associated symptoms, patient reportsedemabut reportsno dizziness,no lightheadedness,no chest pain,no shortness of breath,no palpitations,no calf pain with exertion, andno headache. For medications, patient reportstaking medications as directedandno side effects from medication.Lymphedema chronic BLEROS as noted in the HPI Morbidly obese. Is followed by Cardiology, sleep medicine for LUCY and PVD, Nephrology and Orthopaedics. Has vit D deficiency due to morbid obesity. Reports a painful fleshy mass under his right 3rd toe and nail fungus. Alverto Jones, [employer] [address] [place], [address], [facility] [employer] 02/24/2024 12:12:41 05/26/19 25 text/htm l Emergency Department Follow-Up RecordReported by PatientEmergency Room Follow-Up RecordFor discharge information, patient reportsname of ed __ ([facility]andemergency department discharge date: (please enter in format 'mm/dd/yyyy') (05/13/24).Patient presents for emergency room follow-up. He was seen in the emergency room for pain in the right lower extremity. Venous duplex revealed a DVT. He was started on Eliquis and he is continuing that. This is his second episode of DVT. All aspects of his care are complicated by morbid obesity. He also has chronic lymphedema of both lower extremities. He has chronic pain in his low back and both lower legs and is unable to take NSAIDs due to stable chronic kidney disease. He has not been compliant with wearing Domenica hose or weight loss programs. I previously referred him to vascular approximately 2 to 3 years ago and he is never kept any of those appointments. Hypertension F/UReported by PatientHPIFor lifestyle, patient reportsnot exercising regularlyanddoes not adhere to low sodium diet. For associated symptoms, patient reportsedemaandcalf pain with exertionbut reportsno dizziness,no lightheadedness,no chest pain,no shortness of breath, andno palpitations. For medications, patient reportstaking medications as directedandno side effects from medication.ROS as noted in the [facility] Alverto Jones, [employer] [address] [place], [address], [employer] 06/12/2024 20:10:58 08/04/19 25 text/htm l CoughReported by PatientHPIFor associated symptoms, patient reportsthroat clearingandnasal dischargebut reportsno fever,no chills,no chest pain,no heartburn,no nausea,no vomiting,no edema,no agitation,no wheezing,no sputum production,no chest wall tenderness, andno shortness of breath(earache). For quality, patient reportsdry. For severity, patient reportsmoderate. For duration, patient reportsintermittentandacute (<3 weeks). For onset/timing, patient reportsgradual,actual date: (08/01/24), andbecomes worse as the day goes on. For context, patient reportsnon-smokerandhistory of bronchitis.ROS as noted in the [facility] Alverto Jones, [employer] [address] [place], [address], [employer] 08/04/2024 12:31:02 08/24/19 25 text/htm l Annual WellnessReported by PatientSocial/Behavioral HistoryFor diet and nutrition, patient reportsdiet is high in fat, low in fiber,high caloric intake, andhigh carbohydrate mealsbut reportsdiscussed vitamin and supplement use,discussed portion control, anddiscussed diet improvement. For physical activity, patient reportsdeconditioned due to sedentary lifestylebut reportsdiscussed weightbearing activities. For fracture risk, patient reportsno history of fracturesandno recent explained fracture. For additional lifestyle factors, patient reportsno tobacco use,no alcohol intake,discussed safe sex and sti risk, andpreconception/conception counseling given.Mental Status:For depression risk, patient reportshistory of mood disordersandhistory of depressionbut reportsno thoughts of suicide.Functional AbilityFor hearing, patient reportsloss of hearing: in both earsandrequires tv, radio at high volumebut reportswears hearing aids. For vision, patient reportsworse near.DANIELA as noted in the HPI Was dx in ER with DVT RLE 3 months ago and has now been on Eliquis for that time period. He needs a f/up US to determine if DVT has resolved. He continues to have lymphedema in BLE and OA with a gout component of knees due to continued morbid obesity. He has had multiple steroid injections in his knee with Ortho. He is asking for a referral for a 2nd opinion with [facility]. He has LUCY on cpap. Vit D deficiency. PVD of BLE. States his chronic depression is stable on current meds. Walks with braces. Alverto Jones, [employer] [address] [facility], [place], [address], [facility] [employer] 09/04/2024 19:14:44 12/20/19 25 text/htm autumn SUAREZ as noted in the HPI Chief ComplaintLeft [...] to do anything. Alverto Jones APRN [address] [facility], [place], [address], [facility] [employer] 12/19/2024 16:33:27
== END 2025-02-06 23:59 ==
LOC: LAB.DROPOF 02-07 08:26
PROVIDERS: PCP Nurse Practitioner Family; Visit Provider Nurse Practitioner
DX: L03.90 Cellulitis, unspecified (principal)
CPT/HCPCS: 87070; 87205